=== PATIENT | male | born 1945 | race Caucasian/White ===

== ENCOUNTER 2021-05-27 09:21 | Emergency (ER) | payer MEDICARE, SELFPAY ==
--- NOTE | 2021-05-27 09:35 | XR_ITS ---
FINAL REPORT CLINICAL HISTORY: covid +, cough, fever, soa, pacemaker, headache FINDINGS: 2 views of the chest were obtained . The heart is enlarged. 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 Patient is status post median sternotomy. The mediastinum is within normal limits. There is mild pulmonary vascular congestion. The lungs are clear. There is no pneumothorax. Osseous structures demonstrate degenerative changes of the shoulders. IMPRESSION: Mild pulmonary vascular congestion without acute cardiopulmonary process. Reviewed, Interpreted and Dictated by Dylan Gonzalez III, MD Transcribed by Merlyn Cherry Authenticated by Dylan Gonzalez III, MD on 05/27/2021 10:42:47 AM [facility]
--- NOTE | 2021-05-27 10:36 | HMH.EDUTC ---
[facility] Disposition Clinical Impression: Viral syndrome, Exposure to COVID-19 virus Disposition: Home, Self-Care Condition on Discharge: Good Instructions: DI for Viral Syndrome, DI for COVID-19 (Suspected or Confirmed ), Preventing the Spread of Coronavirus Discharge Instructions Additional Instructions: Take tylenol for pain or fever. Take the medications as directed. Follow up with your regular doctor. GO TO THE ER FOR ANY WORSENING SYMPTOMS Quarantine until you know the results of your covid-19 test. If it is positive, the health department should call you and give you further instructions about your length of Quarantine and other things. Notify your school or workplace of your results and follow their instructions regarding return to work/school. Prescriptions: Guaifenesin/Dextromethorphan [Guaifenesin-Dm 100-10 mg/5 ml] 5 ml PO Q6HP PRN #240 ml PRN Reason: Cough Transmission Status: Pending to [facility] # Azithromycin [Z-Ganesh 250mg Tab*] 250 mg PO UD DOSE PK #6 tab Transmission Status: Pending to [facility] # Referrals: Provider,Referral, [Primary Care Provider] - Time of Disposition: 11:29 Medical Decision Making - Medical Records Medical records reviewed: No: I reviewed the patient's medical records. - Robert Inquiry Pt receiving controlled substance: No Vital Signs: 05/27/21 10:37 Temperature 98.9 F Temperature Source Oral Pulse Rate [Left] 70 Respiratory Rate 18 Blood Pressure [Right Arm] 141/81 H Blood Pressure Mean [Right Arm] 101 02 Sat by Pulse Oximetry 97 - Lab Data Lab Results 05/27/21 10:44: Influenza Type A Ag Negative, Influenza Type B Ag Negative 05/27/21 10:44: Strep Scn Rapid Clinic Negative Orders (Tests/Meds): ORDERS Category Date Time Status Covid-19 Nasal PCR ([facility]) Routine Lab 05/27/21 10:44 Ordered Strep Screen Confirmation Stat Micro 05/27/21 10:44 Received [facility] HPI - General Stated complaint: covid positive, symptoms Time Seen by Provider: 05/27/21 10:37 - History of Present Illness Provider Complaint: He states that he has felt bad for the past 2 days. He has felt weak, fatigued, had chest and sinus congestion and felt bad all over. His daughter had covid-19 over the past 2 weeks. He states that he feels slightly more short of breath than his usual. - Related Data Previous Rx's Medication Instructions Recorded Azithromycin [Z-Ganesh 250mg Tab*] 250 mg PO UD DOSE PK #6 tab 05/27/21 Guaifenesin/Dextromethorphan 5 ml PO Q6HP PRN #240 ml 05/27/21 [Guaifenesin-Dm 100-10 mg/5 ml] Allergies Allergy/AdvReac Type Severity Reaction Status Date / Time No Known Allergies Allergy Verified 05/27/21 10:41 [facility] History - Hepatitis A Screen Attestation statement:: This patient has been screened for Hepatitis A risk factors. I have reviewed the patient's past medical history: Yes ROS Obtained: Yes All systems reviewed & no additional complaints - Constitutional Constitutional: Reports as per HPI - Eyes Eyes: Denies eye discharge - ENT Ears, Nose, Mouth, and Throat: Reports as per HPI - Cardiovascular Cardiovascular: Denies chest pain - Respiratory Respiratory: Reports chest congestion, Reports cough, Denies dyspnea, Denies stridor, Denies wheezing - Gastrointestinal Gastrointestingal: Denies: abdominal pain, diarrhea, nausea, vomiting - Musculoskeletal Musculoskeletal: Denies joint pain, Denies back pain, Denies neck pain - Integumentary/Breasts Skin/Breast: Denies rash Physical Exam - General General appearance: alert, in no apparent distress - Head Head exam: atraumatic, normocephalic, normal inspection - Eye Eye exam: Present: normal appearance, PERRL, EOMI - ENT ENT exam: Present: normal exam, normal oropharynx, mucous membranes moist, TM's normal bilaterally, normal external ear exam - Neck Neck exam: Present: normal inspection, full ROM, trachea m
[2021-05-27 10:37] VITALS: BP 141/81; PULSE 70; RESP 18; TEMP 37.2; O2SAT 97; BMI 30.7
[2021-05-27 10:54] LABS: UTC Influenza A Antigen Negative (Negative); UTC Strep Screen (Rapid) Negative (Negative)
[2021-05-27 10:55] LABS: UTC Influenza B Antigen Negative (Negative)
[2021-05-27 11:27] VITALS: BP 141/81; PULSE 70; RESP 18; TEMP 37.2
== END 2021-05-27 11:37 | disposition home or self-care (01) ==
PROVIDERS: Emergency Provider Nurse Practitioner Family
DX: U07.1 COVID-19 (principal); R09.81 Nasal congestion
CPT/HCPCS: G0463; 71046; 87804; 87880; 99202; C9803; U0003; U0005

== ENCOUNTER 2025-05-04 15:53 | Emergency (ER) | payer MEDICARE, SELFPAY ==
--- OUTSIDE RECORDS SUMMARY | 2023-11-19 05:00 | XMS_ITS ---
Author Organization [facility] Address [address], [place] [id number] Care Team Providers Care Garnishment Specialist Name Role Phone Tony Chacon Unavailable [phone] Allergies No Known Allergies REASON FOR VISIT CCA visit Medications Medication SIG (Take, Route, Frequency, Duration) Notes Start Date End Date Status Eliquis 5 MG Tablet Orally Active Carvedilol 25 MG Tablet Orally BID Active oxyBUTYnin Chloride ER 5 MG Tablet Extended Release 24 Hour TAKE 1 TABLET BY MOUTH ONCE DAILY; Duration: 90 Active Naproxen 500 MG Tablet 1 tablet with lorenza d or milk as needed Orally every 12 hrs; Duration: 15 days 10/16/2018 Active Diclofenac Sodium 1 % Gel as directed Tr ansdermal QID; Duration: 30 day(s) Active Aspirin 81 MG Tablet 1 tablet Orally Onc e a day; Duration: 30 day(s) 12/30/2012 Active Lisinopril 5 MG Tablet take 1/2 tablet b y mouth once daily; Duration: 60 Active Atorvastatin Calcium 40 mg Tablet take 1 tablet by mouth at bedtime Orally Once a day; Duration: 30 Active Social History Social History Additional Details Category Social Info Options Details Miscellaneous: Marital status single Occupation: Retired Problems Problem Type SNOMED Code ICD Code Onset Dates Problem Status W/U Status Risk Notes Problem Dysthymia (90128902) 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) Active confirmed Problem Body mass index 30+ - obesity (234400829) Body mass index [BMI] 30.0-30.9, adult (Z68.30) Active confirmed Vital Signs Temperature 97.9 degrees Fahrenheit 11/19/19 24 Blood pressure systolic 113 mm Hg 11/19/19 24 Blood pressure diastolic 72 mm Hg 024 Heart Rate 83 /min 11/19/2023 Height 5ft 10in in 11/19/2023 Weight 211.2 lbs 11/19/2023 BMI 30.3 kg/m2 11/19/2023 Encounters Encounter Location Date Provider Diagnosis [facility] [address], [place] [id number] 11/19/2023 Tony Chacon Dysthymic disorder F34.1 and Body mass index [BMI] 30.0-30.9, adult Z68.30 Assessments Encounter Date Diagnosis (ICD Code) Assessment Notes Treatment Notes Treatment Clinical Notes Section Notes 11/19/2023 Dysthymic disorder (ICD-10 - F34.1) pt refuses medication. 11/19/2023 Body mass index [BMI] 30.0-30.9, adult (ICD-10 - Z68.30) Plan Of Treatment Treatment Notes Assessment Notes Dysthymic disorder pt refuses medicatio n. Next Appt Details Follow Up: prn, Reason: History and Physical Notes * HPI (History of Present Illness) Category Sub-Category Detail Notes Category Not es Depression Screening PHQ-9 Little inte rest or pleasure in doing things: Not at all Feeling down, depressed, or hopeless: No t at all Trouble falling or staying asleep, or sl eeping too much: Not at all Feeling tired or having little energy: S everal days Poor appetite or overeating : Not at all Feeling bad about yourself-o r that you are a failure or have let yourself or your family down : Not at all Trouble concentrating on thi ngs, such as reading the newspaper or watching television : Not at all Moving or speaking so slowly that other people could have noticed. Or the opposite- being so fidgety or restless that you have been moving around a lot more than usual: Not at all Thoughts that you would be b carson off , or of hurting yourself in some way?: Not at all Total Score:: 1 Interpretation: Minimal Depression Examination Category Sub-Category Detail Notes Category Not es General Examination HEENT: HEAD: normoc ephalic atraumatic EARS: tympanic membranes normal EYES: Pupils Equal, Round, Reactive to Light (PERRL) NOSE: clear rhinorrhea no sinus tenderness THROAT: no exudate on tonsils no erythema NECK/THYROID: supple, no tendernes s CARDIOVASCULAR: regular rate and rhy thm, normal S1S2, no murmurs RESPIRATORY: clear to auscultatio n bilaterally, no wheezes, rales or crackles GASTROINTESTINAL: soft, non-tender/non -distended, bowel sounds present, no mass or organomegaly EXTREMITIES: no clubbing, no cyan osis, no edema GENERAL APPEARANCE: well nourished, well developed, color good, no acute distress SKIN: warm, dry, no signif icant lesions NEUROLOGIC EXAM: alert and oriented x 3, no weakness, no motor sensory deficit ORAL CAVITY: no significant abnor mality , moist mucous membranes Progress Notes * Jason SHIPMANDOB:[birth year] (80 yo M)Acc No.[id number]:11/19/2023 Progress Notes Patient: Jason Sullivan Provider: Kelechi Chacon MD :1945 A ge:78 Y S ex:Male Date:11/19/2023 Address:[address] [place], [place] [id number] Subjective: * Chief Complaints: * C CA visit * HPI: D epression Screening: Patient here today for check up. States he is doing pretty good. States he has done well since he had the pacemaker put in. He states he has had both hips and right shoulder replaced. PHQ-9 L ittle interest or pleasure in doing things N ot at all, F eeling down, depressed, or hopeless N ot at all, T rouble falling or staying asleep, or sleeping too much N ot at all, F eeling tired or having little energy S everal days, P oor appetite or overeating N ot at all, F eeling bad about yourself-or that you are a failure or have let yourself or your family down N ot at all, T rouble concentrating on things, such as reading the newspaper or watching television N ot at all, M oving or speaking so slowly that other people could have noticed. Or the opposite- being so fidgety or restless that you have been moving around a lot more than usual N ot at all, T houghts that you would be better off , or of hurting yourself in some way? N ot at all, T otal Score: 1 ,?Interpretation M inimal Depression. * ROS: G eneral/Constitutional: Chills n o. F ever n o. W eight loss n o.? O phthalmologic: Diminished vision n o. D ouble vision n o. V ision loss n o. E ndocrine: Excessive sweating n o. E xcessive thirst n o. E xcessive urination n o. C ardiovascular: Chest pain n o. C laudication n o. L eg edema?no. P alpitations n o. S hortness of breath n o. G astrointestinal: Abdominal pain n o. D iarrhea n o. N ausea n o. V omiting n o. M usculoskeletal: Joint pain n o. J oint stiffness n o. J oint swelling n o. M orning stiffness n o. * Medical History: No Medical History Documented Medical History Verified * Surgical History: cardiac surgery-bypass 2013 pacemaker Surgical History verified. * Hospitalization/Major Diagno stic Procedure: Denies Past Hospitalization. * Family History: F ather: . M other: . 2 brother(s) . 2 daughter(s) . . F amily History Verified.. * Social History: M gordoous: M arital status: single. Occupation: Retired. Social History Verified. * Medications: T akingAspirin 81 MG Tablet 1 tablet Orally Once a day Lisinopril 5 MG Tablet take 1/2 tablet by mouth once daily Atorvastatin Calcium 40 mg Tablet take 1 tablet by mouth at bedtime Orally Once a day Eliquis 5 MG Tablet Orally Carvedilol 25 MG Tablet Orally BID Diclofenac Sodium 1 % Gel as directed Transdermal QID oxyBUTYnin Chloride ER 5 MG Tablet Extended Release 24 Hour TAKE 1 TABLET BY MOUTH ONCE DAILY Naproxen 500 MG Tablet 1 tablet with food or milk as needed Orally every 12 hrs Taking Aspirin 81 MG Tablet 1 tablet Orally Once a day Taking Lisinopril 5 MG Tablet take 1/2 tablet by mouth once daily Taking Atorvastatin Calcium 40 mg Tablet take 1 tablet by mouth at bedtime Orally Once a day Taking Eliquis 5 MG Tablet Orally Taking Carvedilol 25 MG Tablet Orally BID Taking Diclofenac Sodium 1 % Gel as directed Transdermal QID Taking oxyBUTYnin Chloride ER 5 MG Tablet Extended Release 24 Hour TAKE 1 TABLET BY MOUTH ONCE DAILY Taking Naproxen 500 MG Tablet 1 tablet with food or milk as needed Orally every 12 hrs * Allergies: N .K.DanyelleAllergies Verified. Objective: * Vitals: H t: 5ft 10in, Wt: 211.2 lbs, BMI: 30.3 Index, BP:113/72mm Hg, Temp:97.9F, HR:83/min. * Examination: G eneral Examination: GENERAL APPEARANCE: w ell nourished, well developed, color good, no acute distress. HEENT: H EAD: normocephalic atraumatic EARS: tympanic membranes normal EYES: Pupils Equal, Round, Reactive to Light (PERRL) NOSE: clear rhinorrhea no sinus tenderness THROAT: no exudate on tonsils no erythema. ORAL CAVITY: n o significant abnormality , moist mucous membranes. NECK/THYROID: s upple, no tenderness. CARDIOVASCULAR: r egular rate and rhythm, normal S1S2, no murmurs. RESPIRATORY: c lear to auscultation bilaterally, no wheezes, rales or crackles. GASTROINTESTINAL: s oft, non-tender/non-distended, bowel sounds present, no mass or organomegaly. NEUROLOGIC EXAM: a lert and oriented x 3, no weakness, no motor sensory deficit. SKIN: w arm, dry, no significant lesions . EXTREMITIES: n o clubbing, no cyanosis, no edema. ? Assessment: * Assessment: 1. D ysthymic disorder - F34.1 (Primary) 2 . B shelbi mass index [BMI] 30.0-30.9, adult - Z68.30 Plan: * Treatment: * Follow Up: p rn * Electronic signature of Koko Chacon MD on 05/04/2025 at 04:18 PM EST Sign off status: Pending * Provider: Kelechi Chacon MD Date: 0 11/19/2023 Generated for Silke taylor/Gonzalo/Angelitting on: 07/05/2024 04:18 PM EST
--- OUTSIDE RECORDS SUMMARY | 2025-04-14 09:00 | XMS_ITS | Encounter Summary ---
[facility] Address [address] [place] [address] Care Team Providers Care Fashion Journalist Name Role Phone Tony Chacon MD Primary Care Provider Encounter Details Date Type Department Care Team (Late st Contact Info) Description 04/14/2025 9:00 AM EST Ancillary Procedure [facility] [address] [id number] Social History Tobacco Use Types Packs/Day Years Used Date Smoking Tobacco: Never Smokeless Tobacco: Never Alcohol Use Standard Drinks/Week Comments No 0 (1 standard drink = 0.6 oz pur e alcohol) AUDIT-C Answer Date Recorded Q1: How often do you have a drink containing alcohol? Never 08/08/2022 Q2: How many drinks containi ng alcohol do you have on a typical day when you are drinking? Patient does not drink Q3: How often do you have si x or more drinks on one occasion? Never 08/08/2022 Abuse Screen Answer Date Recorded Feels Unsafe at Home or Work/School no 05/25/2023 Feels Threatened by Someone no 05/14 Does Anyone Try to Keep You From Having Contact with Others or Doing Things Outside Your Home? no 05/25/2023 Physical Signs of Abuse Present no 05/25/2023 Housing Stability Answer Date Recorded Current Living Arrangements home 05/14 Potentially Unsafe Housing Conditions Not on nasrin e 05/25/2023 Disabilities Answer Date Recorded Difficulty Concentrating, Remembering or Making Decisions no 05/25/2023 Difficulty Managing Errands Independently no 05/25/2023 Education Answer Date Recorded Help with school or training? Not on file Preferred Language Mauritanian 08/08/2022 Sex and Gender Information Value Date Recorded Sex Assigned at Not on file Legal Sex Male 11:56 AM EDT Gender Identity Not on file Sexual Orientation Not on file documented as of this encounter Plan of Treatment Upcoming Encounters Date Type Department Care Team (Late st Contact Info) Description 04/20/2026 9:30 AM EST Office Visit [facility] [address] [facility] [address] [place] [address] Marek Cedeno MD [address] [facility] [address] [place], [place] [id number] documented as of this encounter Procedures Procedure Name Priority Date/Time Associated Diagnosis Comments XR SHOULDER 2+ VW RIGHT Routine 04/14/2025 9:00 AM EST Status post reverse total replacement of right shoulder documented in this encounter Results * XR Shoulder 2+ View Right (04/14/2025 9:00 AM EST) Anatomical Region Laterality Modality Upper Extremities, Shoulder Right Radi ographic Imaging Narrative 04/14/2025 9:13 AM EST Imaging: shoulder x-rays 3 views - AP, axillary, and scapular-Y x-ray views Side: RIGHT SHOULDER Indication for shoulder x-ray 3 views: shoulder pain Comparison: postoperative imaging Findings: Right shoulder 3 views after reverse shoulder arthroplasty show stable findings relative to prior serial postoperative imaging. 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 Stable radiographic findings noted. No acute bony changes noted. I personally reviewed the above x-rays. us Marek Cedeno MD IMG DIAGNOSTIC IMAGING OR DERABLES Final Result documented in this encounter Visit Diagnoses Not on filedocumented in this encounter Care Teams Fashion Journalist Relationship Specialty Start Date End Date Tony Chacon MD [facility] [address] [place] [address] (work) PCP - General Family Medicine 03/06/19 documented as of this encounter
--- OUTSIDE RECORDS SUMMARY | 2025-04-14 09:30 | XMS_ITS | Encounter Summary ---
[facility] Organization [facility] Address [address] [place] [address] Care Team Providers Care Golf Manager Name Role Phone Tony Chacon MD Primary Care Provider Reason for Visit * Reason Comments Follow-up 1 year follow up -- 3 year status post right total shoulder reverse arthroplasty (04/12/22) Encounter Details Date Type Department Care Team (Late st Contact Info) Description 04/14/2025 9:30 AM EST Office Visit [facility] [address] [facility] [address] [place] [address] [place] [address] [place] [address] [address] [place] [id number] 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 Not on file Preferred Language Malawian 08/08/2022 Sex and Gender Information Value Date Recorded Sex Assigned at Not on file Legal Sex Male 11:56 AM EDT Gender Identity Not on file Sexual Orientation Not on file documented as of this encounter Last Filed Vital Signs Vital Sign Reading Time Taken Comments Blood Pressure 122/82 04/14/2025 8:47 AM EST Pulse - - Temperature - - Respiratory Rate - - Oxygen Saturation - - Inhaled Oxygen Concentration - - Weight 93.9 kg (207 lb 1.6 oz) 04/14/2025 8:47 A M EST Height 172.7 cm (5' 8 ) 04/14/2025 8:47 AM EST Body Mass Index 31.49 04/14/2025 8:47 AM EST documented in this encounter Progress Notes * Marek Cedeno MD - 04/14/2025 9:30 AM EST Images from the original note were not included. [facility] Orthopaedic Surgery Office Follow Up - Marek Cedeno MD [facility] Office Follow Up Visit Patient Name: Jason Perez Chief Complaint: Chief Complaint Patient presents with Follow-up 1 year follow up -- 3 year status post right total shoulder reverse arthroplasty (04/12/22) Referring Physician: No ref. provider found - I appreciate the referral History of Present Illness: Jason Perez returns to clinic today for F/U: postoperative follow-up of rightBody Part: shoulderReason: reverse arthroplasty . The issue has been ongoing for 3 year(s). The patient rates pain at 0/10 on the pain scale. Previous/current treatments: NSAIDS and physical therapy. Overall, the patientis doing better. I have reviewed the patient's history of present illness as noted/entered above. I have reviewed the patient's past medical history, surgical history, social history, family history, medications, and allergies as noted in the electronic medical record and as noted/entered. I havereviewed the patient's review of systems as noted/enter and updated as noted in the patient's HPI. 04/14/2025 Right SHOULDER Research protocol right stemless reverse shoulder arthroplasty completed 04/12/2022 3 years postop continues to do well VAS equals 0 out of 10. Reports doing better VAS equals 0 out of 10 ASES score 3 years equals 95 Remarkable individual and remarkable family ASES Shoulder Score Which shoulder is being treated today?: Right (04/14/25899) Usual Work?: (not recorded) Usual Sport/Leisure Activity?: (not recorded) Do you have shoulder pain at night?: No (04/14/25899) Do you take pain killers such as paracetamol (acetaminophen), diclofenac, or ibuprofen?: Yes (04/14/25899) Do you take strong pain killers such as codeine, tramadol, or morphine?: No (04/14/25899) How many pills do you take on an average day?: 4 (04/14/25899) Intensity of pain? (scale of 0-10): 1 (04/14/25899) Is it difficult for you to put on a coat?: Not difficult (04/14/25899) Is it difficult for you to sleep on the affected side?: Not difficult (04/14/25899) Is it difficult for you to wash your back/do up bra?: Not difficult (04/14/25899) Is it difficult for you to manage toileting?: Not difficult (04/14/25899) Is it difficult for you to comb your hair?: Not difficult (04/14/25899) Is it difficult for you to reach a high shelf?: Not difficult (04/14/25899) Is it difficult for you to lift 10lbs (4.5 kg) above your shoulder?: Not difficult (04/14/25899) Is it difficult for you to throw a ball overhand?: Not difficult (04/14/25899) Is it difficult for you to do your usual work?: Not difficult (04/14/25899) Is it difficult for you to do your usual sport/leisure activity?: Not difficult (04/14/25899) Pain Visual Analog Scale (VAS): 45 (04/14/25899) ADL Score: 50 (04/14/25899) ASES Total Score: 95 (04/14/25899) Prior history: 10/10/2022: Right reverse shoulder arthroplasty date of surgery 04/12/2022 Right shoulder 6 months out from stemless reverse shoulder arthroplasty. He is doing incredibly well 0 out of 10 pain. Incredible active and passive range of motion. He has noted over the last several months perhaps some evidence of carpal tunnel syndrome. That is what his primary care team thinks as well. We will get an EMG/NCV of the right upper extremity to evaluate for possible carpal tunnel syndrome. The shoulder is doing incredibly well. Right total hip arthroplasty with Dr. Olson 08/07/2022 went home the next day. He is done well with that no events with regards to the hip. Supportive daughter present and great grandson. Prior: Bilateral severe glenohumeral joint arthritis Right worse than left Pacemaker, prior open heart surgery, history of atrial fibrillation, [facility] Cardiology team is at [facility] He is set for possible pacemaker exchange in March. Supportive daughter Ritu is present. They are targeting surgery for the right shoulder in February she and her do have some travel arranged around that time and do want to be available to support him. They originally from [facility]. His supportive daughter Ritu is present and he helps them with her horses. 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 02/16/2022: Right shoulder severe B3 glenoid, supportive daughter present, consented for research study. Shoulder still incredibly painful. They note they have achieved cardiac clearance. Eliquis Date of surgery 04/12/2022 right reverse shoulder arthroplasty 04/03/2023 1 year post surgery Left total hip replacement by Dr. Olson 08/07/2022 Right carpal tunnel and cubital tunnel release by Dr. Homa Moura 02/28/2023 The surgeries are unrelated to the shoulder. He notes the shoulder is doing fantastic SANE score equals 100 VAS equals 0 out of 10 Very satisfied with the shoulder Current health is rated at 100 No difficulties noted with the shoulder No pain reported with the shoulder Overall he is doing incredibly well 04/08/2024: Right reverse shoulder arthroplasty stemless 04/03/2023 2 years postsurgery SANE score equals 100 VAS equals 0 out of 10 ASES score is 100 General Health score is 100 X-rays into your outcomes completed at visit He is doing fantastic and x-rays are stable. Report of daughter present. Subjective Subjective Review of Systems Constitutional: Negative. Negative for chills, fatigue and fever. HENT: Negative. Negative for congestion and dental problem. Eyes: Negative. Negative for blurred vision. Respiratory: Negative. Negative for shortness of breath. Cardiovascular: Negative. Negative for leg swelling. Gastrointestinal: Negative. Negative for abdominal pain. Endocrine: Negative. Negative for polyuria. Genitourinary: Negative. Negative for difficulty urinating. Musculoskeletal: Positive for arthralgias. Skin: Negative. Allergic/Immunologic: Negative. Neurological: Negative. Hematological: Negative. Negative for adenopathy. Psychiatric/Behavioral: Negative. Negative for behavioral problems. Past Medical History: Past Medical History: Diagnosis Date Arthritis Atrial fibrillation Cancer skin cancer Cardiac pacemaker [employer] Coronary artery disease Elevated cholesterol Enlarged prostate Heart disease History of bilateral cataract extraction History of COVID-2020 no hospital no steroids History of MA (myocardial infarction) Hypertension Wears glasses reading Wears partial dentures UPPER PARTIAL PLATE Past Surgical History: Past Surgical History: Procedure Laterality Date CARDIAC CATHETERIZATION CARPAL TUNNEL RELEASE Left 05/25/2023 Procedure: CARPAL TUNNEL RELEASE - LEFT; Surgeon: Homa Moura MD; Location: [facility] OR; Service: Orthopedics; Laterality: Left; CARPAL TUNNEL RELEASE WITH CUBITAL TUNNEL RELEASE Right 02/28/2023 Procedure: OPEN CARPAL TUNNEL RELEASE WITH ULNAR NERVE RELEASE AT THE ELBOW - RIGHT; Surgeon: Homa Moura MD; Location: [facility] OR; Service: Orthopedics; Laterality: Right; CATARACT EXTRACTION W/ INTRAOCULAR LENS IMPLANT, BILATERAL CORONARY ARTERY BYPASS GRAFT CABG x 7 st Tang 2012 PACEMAKER IMPLANTATION [employer] PACEMAKER REPLACEMENT 05/31/2022 SKIN BIOPSY TOTAL HIP ARTHROPLASTY Left 08/07/2022 Procedure: TOTAL HIP ARTHROPLASTY - LEFT; Surgeon: Ace Olson MD; Location: [facility] OR; Service: Orthopedics; Laterality: Left; TOTAL SHOULDER ARTHROPLASTY W/ DISTAL CLAVICLE EXCISION Right 04/12/2022 Procedure: TOTAL SHOULDER REVERSE ARTHROPLASTY RIGHT; Surgeon: Marek Cedeno MD; Location: [facility]; Service: Orthopedics; Laterality: Right; Incision TIme: 1033 1st stitch/last implant: 1147 Family History: Family History Problem Relation Name Age of Onset Cancer Father Social History: Social History Socioeconomic History Marital status: Tobacco Use Smoking status: Never Smokeless tobacco: Never Vaping Use Vaping status: Never Used Substance and Sexual Activity Alcohol use: No Drug use: No Sexual activity: Defer Medications: Current Outpatient Medications: acetaminophen (TYLENOL) 500 MG tablet, Take 1 tablet by mouth Every 8 (Eight) Hours., Disp: 90 tablet, Rfl: 1 amiodarone (PACERONE) 200 MG tablet, Take 1 tablet by mouth Daily., Disp: , Rfl: atorvastatin (LIPITOR) 40 MG tablet, Take 1 tablet by mouth Daily., Disp: , Rfl: 0 Eliquis 5 MG tablet tablet, Take 1 tablet by mouth Every 12 (Twelve) Hours. Take 2.5 mg every 12 hours till evening. Resume 5 mg every 12 hours Sunday am ( 08/11), Disp: 60 tablet, Rfl: 0 isosorbide mononitrate (IMDUR) 30 MG 24 hr tablet, Take 1 tablet by mouth Daily., Disp: 30 tablet, Rfl: 5 Jardiance 10 MG tablet tablet, Take 1 tablet by mouth Daily., Disp: , Rfl: lisinopril (PRINIVIL,ZESTRIL) 5 MG tablet, , Disp: , Rfl: metoprolol succinate XL (TOPROL-XL) 50 MG 24 hr tablet, Take 1 tablet by mouth Daily., Disp: , Rfl: naproxen (NAPROSYN) 500 MG tablet, TAKE 1 TABLET BY MOUTH EVERY 12 HOURS WITH FOOD OR MILK FOR 15 DAYS NEEDED, Disp: , Rfl: nitroglycerin (NITROSTAT) 0.4 MG SL tablet, Place under the tongue Every 5 (Five) Minutes As Neededfor Chest Pain., Disp: , Rfl: Allergies: No Known Allergies The following portions of the patient's history were reviewed and updated as appropriate: allergies, current medications, past family history, past medical history, past social history, past surgicalhistory and problem list. Objective Objective Vital Signs: Vitals: 04/14/25 0847 BP: 122/82 Weight: 93.9 kg (207 lb 1.6 oz) Height: 172.7 cm (68 ) Ortho Exam: Right shoulder excellent arc of motion persists Forward flexion 140 degrees abduction 160 degrees forward elevation arm with external rotation 45/45 ER at the side Extension 50-50 Excellent deltoid strength Results Review: Imaging Results (Last 24 Hours) Procedure Component Value Units Date/Time XR Shoulder 2+ View Right [[id number]] Resulted: 04/14/25912 Updated: 04/14/25912 Narrative: Imaging: shoulder x-rays 3 views - AP, [...] Stable radiographic findings noted. No acute bony changesnoted. I personally reviewed the above x-rays. Assessment / Plan Assessment/Plan: Problem List Items Addressed This Visit Musculoskeletal and Injuries Status post reverse total replacement of right shoulder - Primary Relevant Medications acetaminophen (TYLENOL) 500 MG tablet naproxen (NAPROSYN) 500 MG tablet Other Relevant Orders XR Shoulder 2+ View Right (Completed) Right shoulder doing incredibly well 3 years postop He will continue to progress as able Follow Up: 12 months for 4 year follow-up appointment with RIGHT shoulder 3 views and ASES scoring under Flowsheets upon arrival/during rooming Marek Cedeno MD, FAAOS Orthopedic Surgeon, Shoulder Surgery [facility] Orthopedics and Sports Medicine [address] [place] [address], [address] [place] [address] & New Location: [facility] Location [address] [facility], [address] [place] [address] 04/14/25 09:19 EST documented in this encounter Plan of Treatment Upcoming Encounters Date Type Department Care Team (Late st Contact Info) Description 04/20/2026 9:30 AM EST Office Visit [facility]ICINE [address] [place] [address] [place] [phone] Marek Cedeno MD [address] [facility] [address] [place] [address] documented as of this encounter Procedures Procedure [...] noted. I personally reviewed the above x-rays. Marek Cedeno MD IMG DIAGNOSTIC IMAGING OR DERABLES Final Result documented in this encounter Visit Diagnoses Diagnosis Status post reverse total replacement of right shoulder- Primary documented in this encounter Care Teams Golf Manager Relationship Specialty Start Date End Date Tony Chacon MD [address] [place] [phone] PCP - General Family Medicine 03/06/19 documented as of this encounter
--- OUTSIDE RECORDS SUMMARY | 2025-04-24 08:00 | XMS_ITS | Encounter Summary ---
Author Organization Healthcare Address [address] [place] [address] Care Team Providers Care Delimer Name Role Phone Tony Chacon MD Primary Care Provider [phone] Reason for Referral * Imaging (Routine) - Closed Specialty Diagnoses / Procedures Referred By Alina sood Referred To Contact Cardiology Diagnoses Acute heart failure, unspecified heart failure type Procedures Echo, Adult Transthoracic Complete Jeffrey Pierce MD [address] [place] [address] Phone: tel: fax: Referral ID Status Reason Start Date Expiration Date V isits Requested Visits Authorized [id number] Closed Perform Procedure 01/23/2025 07/25/2026 1 1 Reason for Visit * Imaging (Routine) - Closed Specialty Diagnoses / Procedures Referred By Alina sood Referred To Contact Cardiology Diagnoses Acute heart failure, unspecified heart failure type Procedures Echo, Adult Transthoracic Complete Jeffrey Pierce MD [address] [place] [address] Phone: tel: fax: Referral ID Status Reason Start Date Expiration Date V isits Requested Visits Authorized [id number] Closed Perform Procedure 01/23/2025 07/25/2026 1 1 Encounter Details Date Type Department Care Team (Latest Contact Info) Description 04/24/2025 8:00 AM EST - 04/24/2025 11:59 PM EST Hospital Encounter Cardiac Imaging [address] [place] [address] Acute heart failure, unspecified heart failure type Discharge Disposition: Home or Self Care Social History Tobacco Use Types Packs/Day Years Used Date Smoking Tobacco: Never Passive Smoke Exposure: Past Smokeless Tobacco: Never Alcohol Use Standard Drinks/Week Comments No 0 (1 standard drink = 0.6 oz pure alcohol) Alcoholic Drinks/day: Denies alcohol consumption PHQ-2 Answer Date Recorded Patient Health Questionnaire-2 Score 0 04/24/2025 PHQ-9 Answer Date Recorded Patient Health Questionnaire-9 Score 0 04/24/2025 Sex and Gender Information Value Date Recorded Sex Assigned at Not on file Legal Sex Male 7:32 PM EDT Gender Identity Not on file Sexual Orientation Not on file documented as of this encounter Last Filed Vital Signs Vital Sign Reading Time Taken Comments Blood Pressure 135/85 04/24/2025 9:03 AM EST Pulse 70 04/24/2025 9:03 AM EST Temperature - - Respiratory Rate - - Oxygen Saturation - - Inhaled Oxygen Concentration - - Weight - - Height - - Body Mass Index - - documented in this encounter Functional Status * Over the past 2 weeks, how often have you been bothered by any of the following problems? Question Answer Date of Assessment Author Little interest or pleasure in doing things Not at all 04/24/2025 8:48 AM Michael Antonio Feeling down, depressed, or hopeless Not at all 04/24/2025 8:48 AM Michael Antonio Patient Health Questionnaire -2 Score 0 04/24/2025 8:48 AM Michael Antonio * Question Answer Date of Assessment Author Trouble falling or staying asleep, or sleeping too much Not at all 04/24/2025 8:48 AM Bia Echeverria ams Feeling tired or having ann-marie le energy Not at all 04/24/2025 8:48 AM Michael Antonio Poor appetite or overeating Not at all 04/24/2025 8: 48 AM Bia Antonio Feeling bad about yourself - or that you are a failure or have let yourself or your family down Not at all 04/24/2025 8:48 AM Michael Antonio Trouble concentrating on things, such as reading the newspaper or watching television Not at all 04/24/2025 8:48 AM Michael Antonio Moving or speaking so slowly that other people could have noticed. Or the opposite - being so fidgety or restless that you have been moving around a lot more than usual Not at all 04/24/2025 8:48 AM Bia Echeverria ams Thoughts that you would be better off or hurting yourself in some way Not at all 04/24/2025 8:48 AM Valentina Antonio ndbeverley Patient Health Questionnaire -9 Score 0 04/24/2025 8:48 AM Michael Antonio * How difficult have these problems made it for you to do your work, take care of things at home, or get along with other people? Answer Date of Assessment Author Not difficult at all 04/24/2025 8:48 AM Bia Mckenzie documented as of this encounter Medications at Time of Discharge amiodarone (Pacerone) 200 MG tablet Take 1 tablet by mouth daily. 90 tablet 3 02/27/2025 atorvastatin (Lipitor) 80 MG tablet Take 1 tablet by mouth daily. 01/19/2025 bumetanide (Bumex) 1 MG tablet Take 1 tablet by mouth as needed. 01/19/2025 Eliquis 5 MG tablet Take 1 tablet by mouth 2 times a day. 01/16/2025 Jardiance 10 MG Take 1 tablet by mouth daily. 12/29/2024 lisinopril 10 MG tablet Take 1 tablet by mouth daily. 90 tablet 3 02/27/2025 lisinopril 5 MG tablet Take 1 tablet by mouth daily. metoprolol succinate XL (Toprol-XL) 25 MG 24 hr tablet Take 1 tablet by mouth daily. 90 tablet 3 02/27/2025 nitroglycerin (Nitrostat) 0.[address] 1 tablet under the tongue As Directed. EVERY 5 MINUTES NEEDED FOR CHEST PAIN PUT 1 PILL UNDER TONGUE. NO MORE THAN 3 DOSES IN 15MIN.CALL 911 IF PAIN UNRELIEVED 5MIN AFTER 1ST DOSE. documented as of this encounter Plan of Treatment Not on file documented as of this encounter Procedures Procedure Name Priority Date/Time Associated Diagnosis Comments ECHO, ADULT TRANSTHORACIC COMPLETE Routine 04/24/2025 8:49 AM EST Acute heart failure, unspecified heart failure type documented in this encounter Results * ECHO, ADULT TRANSTHORACIC COMPLETE (04/24/2025 8:49 AM EST) Height 177.8 DOC ISCV Weight 93.4 DOC ISCV BSA 2.11 m2 DOC ISCV Ao Root Diam 43 mm DOC ISCV Asc Ao Diam 43 mm DOC ISCV LA dimension 59 mm DOC ISCV IVSd 12 mm DOC ISCV LVIDd 55 mm DOC ISCV LVPWd 10 mm DOC ISCV LV MASS(C)D 241 g DOC ISCV [facility] CV ECHO LV MASS INDEX 114 g/m2 DOC ISCV LV RWT 0.40 mm DOC ISCV PA acc time 60 msec DOC ISCV mean PAP 52 mmHg DOC ISCV PA NE(ACCEL) 52.1 mmHg DOC ISCV PA acc slope 752.9 cm/s2 DOC ISCV LAV(MOD-4ch) 134 mL DOC ISCV LAV(MOD-bp) Indexed 57 mL/m2 DOC ISCV LAV(MOD-2ch) 108 mL DOC ISCV RV base 54 mm DOC ISCV RV Mid 50 mm DOC ISCV RA MOD 4Ch 117 mL DOC ISCV RANDI 55 mL/m2 DOC ISCV LV EDV(MOD-4ch) 151 mL DOC ISCV LV ESV(MOD4ch) 84 mL DOC ISCV EF(MOD-sp4) 44 % DOC ISCV LV EDV(MOD-2ch) 142 mL DOC ISCV EDV(MOD-bp) 147 mL DOC ISCV LV ESV(MOD2ch) 76 mL DOC ISCV EF(MOD-sp2) 46 % DOC ISCV ESV(MOD-bp) 80 mL DOC ISCV EF(MOD-bp) 45 % DOC ISCV LVLs ap2 7.5 mm DOC ISCV Anatomical Region Laterality Modality Echocardiography Narrative 04/24/2025 9:16 AM EST Left Ventricle: Based on the linear dimension and/or 2D volumes, the left ventricle is mildly dilated in size. There is eccentric hypertrophy. The left ventricular systolic function is mildly reduced. The LVEF as measured by biplane volume is 45%. The inferolateral and inferior luo are hypokinetic. Right Ventricle: The right ventricle is moderately dilated. The right ventricular systolic function is moderately reduced. Aortic Valve: There is mild aortic valve regurgitation. Pericardium: No pericardial effusion. Compared to the most recently available prior study, and allowing for differences in image quality and technique, LVEF improved compared to outside echocardiogram. Left Ventricle Based on the linear dimension and/or 2D volumes, the left ventricle is mildly dilated in size. There is eccentric hypertrophy. The left ventricular systolic function is mildly reduced. The LVEF as measured by biplane volume is 45%. Unable to assess diastolic function. The inferolateral and inferior luo are hypokinetic. Right Ventricle The right ventricle is moderately dilated. A catheter/lead is present in the right ventricle. The right ventricular systolic function is moderately reduced. Unable to estimate the right ventricular systolic pressure (RVSP) due to inadequate TR signal. Left Atrium The left atrial size is severely increased with an indexed volume of >48 mL/m2. The interatrial septum is intact with no evidence for an atrial septal defect. Right Atrium The right atrium is dilated by visual assessment. There is a catheter/lead present in the right atrium. IVC/SVC Based on the IVC size and respiratory variation, the estimated right atrial pressure is 3mmHg. Mitral Valve There is mild mitral annular calcification. There is mild mitral regurgitation. There is no mitral stenosis. Tricuspid Valve The tricuspid valve is grossly normal in appearance. There is trace tricuspid regurgitation. There is no tricuspid stenosis. Aortic Valve The non-coronary cusp is thickened. The left and right cusps are calcified. There is aortic annular calcification present. There is mild aortic valve regurgitation. There is no hemodynamically significant valvular aortic stenosis. Pulmonic Valve The pulmonic valve is grossly normal. There is trace pulmonic regurgitation. There is no pulmonic stenosis. Pericardium No pericardial effusion. Great Vessels The aortic root is mildly dilated. The sinus of Valsalva (aortic root) diameter is 43 mm by leading edge to leading edge method. In the maximally visualized portion, the ascending aorta appears mildly dilated. The ascending aorta diameter is 43 mm. The main pulmonary artery is not well visualized. Study Details A complete transthoracic echocardiogram using two-dimensional (2D), m-mode, color and spectral flow Doppler imaging was performed. During the study the apical, parasternal, subcostal and suprasternal view was captured. Height: 177.8 cm. Weight: 93.4 kg. BSA: 2.11 m2. Study Recommendation Compared to the most recently available prior study, and allowing for differences in image quality and technique, LVEF improved compared to outside echocardiogram. us Jeffrey Pierce MD CV ECHO PROCEDURES Final Resul t documented in this encounter Visit Diagnoses Diagnosis Acute heart failure, unspecified heart failure type documented in this encounter Administered Medications Inactive Administered Medications - up to 3 most recent administrations Medication Order MAR Action Action Date Dose Rate Site perflutren lipid microspheres (Definity) injection 10 mcL/kg 10 mcL/kg, Intravenous, Once in imaging, 1 dose, Starting on Sun04/24/25 at 0845, Until Sun04/24/25 at 0840, Routine Given 04/24/2025 8:40 AM EST documented in this encounter Additional Health Concerns Assessment Noted Time PHQ-9 Depression Total Score: 0 04/24/20 8:48 AM EST A fall risk assessment has been complete d for the patient 04/24/2025 8:49 AM EST A Body Mass Index follow-up plan has been documented for the patient 04/24/2025 9:59 AM EST documented as of this encounter Care Teams Delimer Relationship Specialty Start Date End Date Tony Chacon MD [address] [place] [address] PCP - General 09/24/20 documented as of this encounter
--- OUTSIDE RECORDS SUMMARY | 2025-04-24 09:00 | XMS_ITS | Encounter Summary ---
Author Organization Healthcare Address [address] [place] [address] Care Team Providers Care Pot Press Operator Name Role Phone Tony Chacon MD Primary Care Provider [phone] Reason for Visit * Reason Comments Follow-up Encounter Details Date Type Department Care Team (Late st Contact Info) Description 04/24/2025 9:00 AM EST Office Visit [facility] [place] [address] [place] [address] Jeffrey Pierce MD [address] [place] [address] Acute heart failure, unspecified heart failure type (Primary Dx) Social History Tobacco Use Types [...] Sign Reading Time Taken Comments Blood Pressure 131/86 04/24/2025 8:49 AM EST Pulse 69 04/24/2025 8:49 AM EST Temperature - - Respiratory Rate 16 04/24/2025 8:49 AM EST Oxygen Saturation 97% 04/24/2025 8:49 AM EST Inhaled Oxygen Concentration - - Weight 93.1 kg (205 lb 4 oz) 04/24/2025 8:49 AM EST Height 177.8 cm (5' 10 ) 04/24/2025 8:49 AM EST Body Mass Index 29.45 04/24/2025 8:49 AM EST documented in this encounter Functional Status * [...] at all 04/24/2025 8:48 AM Valentina Antonio Patient Health Questionnaire -9 Score 0 04/24/2025 8:48 AM Michael Antonio * How difficult have these problems made it for you to do your work, take care of things at home, or get along with other people? Answer Date of Assessment Author Not difficult at all 04/24/2025 8:48 AM EST Bia Go documented as of this encounter Miscellaneous Notes * Progress Notes - Jeffrey Pierce MD - 04/24/2025 9:00 AM EST Images from the original note were not included. Cardiology Clinic Note Referring provider: No referring provider defined for this encounter. PCP: Tony Chacon MD Reason for consult/visit: F/U heart failure History of Present Illness The patient is an 80-year-old gentleman with a past medical history notable for coronary artery disease, heart failure with mildly reduced ejection fraction, atrial fibrillation, hypertension, and hyperlipidemia, who is here for follow-up. He was admitted in January 2025 due to a further reduction in his ejection fraction to 20 to 25 percent of unclear etiology. He has been persistently in atrial fibrillation for a long period of time and was started on amiodarone during that admission. At the last visit, he was symptomatic, likelydue to the higher dose of amiodarone, so the dosage was decreased to 200 mg daily. Since then, he has been feeling great and reports no shortness of breath, orthopnea, PND, lower extremity edema, palpitations, or chest pain. He has tolerated his medications well. The following portions of the chart were reviewed this encounter and updated as appropriate: Tobacco Allergies Meds Problems Med Hx Surg Hx Fam Hx Review of Systems 14 point review of systems performed, pertinent positives documented in the HPI, and remaining reviewed systems are negative. Objective Visit Vitals BP 131/86 Pulse 69 Resp 16 Ht 1.778 m (5' 10 ) Wt 93.1 kg (205 lb 4 oz) SpO2 97% BMI 29.45 kg/m?? Smoking Status Never BSA 2.14 m?? Physical Exam Physical Exam Constitutional: General: He is not in acute distress. Appearance: He is not ill-appearing, toxic-appearing or diaphoretic. HENT: Head: Normocephalic and atraumatic. Right Ear: External ear normal. Left Ear: External ear normal. Eyes: Extraocular Movements: Extraocular movements intact. Neck: Vascular: No carotid bruit. Cardiovascular: Rate and Rhythm: Normal rate and regular rhythm. Heart sounds: No murmur heard. No friction rub. No gallop. Pulmonary: Effort: Pulmonary effort is normal. No respiratory distress. Breath sounds: No wheezing, rhonchi or rales. Abdominal: General: Bowel sounds are normal. There is no distension. Tenderness: There is no abdominal tenderness. There is no guarding. Musculoskeletal: Cervical back: No rigidity or tenderness. Right lower leg: No edema. Left lower leg: No edema. Skin: General: Skin is warm and dry. Neurological: Mental Status: He is oriented to person, place, and time. Gait: Gait normal. Psychiatric: Mood and Affect: Mood normal. Behavior: Behavior normal. Primary Study Review: I personally reviewed the the images/tracings of the following studies: echocardiogram and ECG Lab Review I personally reviewed the pertinent labs and are notable for TSH mildly elevated. Assessment/Plan Assessment and Plan Problem List Items Addressed This Visit None Visit Diagnoses Acute heart failure, unspecified heart failure type - Primary Relevant Medications nitroglycerin (Nitrostat) 0.4 MG SL tablet Other Relevant Orders ECG Adult (Now - Performed in your clinic) (Completed) Comprehensive metabolic panel TSH Reflex FT4 Jason Perez Sr. is a 80 y.o. male with a past medical history notable for CAD s/p CABG in 2012, HF with mildly reduced LVEF, Atrial fibrillation, HTN, HLD who presents for evaluation of HFrEF doingbetter overall. 1) HFrEF - LVEF of 20-25% - Etiology: Unclear. 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 Has not had a change in his Afib burden (has been in it persistently for >1 year). - NYHA class 2, ACC/AHA stage C - Currently mildly volume overloaded. - Current GDMT: TAMRA/ARB/ARNI: Lisinopril 10 mg daily Beta alanna: Metoprolol Succinate 50 mg daily. MRA: None. Diuretic: Bumex 1 mg daily PRN. SGLT2i: Jardiance 10 mg daily. - Device therapy: [employer] PPM (not an ICD) - Plan: - Recheck echo today showed LVEF improved to 45% (his baseline prior to this event - Continue current regimen 2) CAD - Had extreme shortness of breath in 2012, and underwent CABG. - No current anginal symptoms (CCS class 1). - Patient is on Apixiban 5 mg BID. No need for anti-platelet agents - Continue high potency statin with Atorvastatin 80 mg daily. No lipids on final - Other GDMT noted above. - Plan: Continue current regimen. 3) Atrial fibrillation - Long-standing persistent (>1 year) - Prior interventions include: Unclear. - Check ECG today showed V paced rhythm. Device interrogation showed underlying atrial fibrillationfor his atrial rhythm. - Rhythm control with Amiodarone. Currently taking 200 mg daily (reduced last visit). - TSH mildly elevated. LFTs normal. Had chest imaging during recent hospitalization. - Non-valvular atrial fibrillation. [id number] of 5. Anticoagulation strategy: Apixiban 5 mg BID. No bleeding issues noted on anticoagulation. - Recheck TSH and LFTs. Patient is doing well, and would like to continue regimen. I would stop Amiodarone at next visit if still persistently in atrial fibrillation. 4) CKD - Recheck CMP I spent 40 minutes performing the following components of the encounter (on the day of the encounter): reviewing History, examining the patient, reviewing imaging and/or labs, Independently interpreting echocardiogram, ECG and/or other imaging results, counseling the patient and family/caregiver, communicating with other health housekeeper caregiver, and entering clinical information in the EHR. Verbal consent was obtained to use ambient listening technology to assist in the documentation of the encounter: no * Progress Notes - Moses Basilio RN - 04/24/2025 9:00 AM EST [facility]: In-Person CIED Evaluation & Report Name: Jason Perez Sr. Date: 04/24/2025 : 1945 Age: 80 y.o. Device: Food Beverage Attendant: [employer] STATUS CONTROLLER-PM Permanent Programming Mode : DDDR LRL: 70 bpm MTR: 130 bpm Lead Measurments Available measurements within normal limits. See attached report. Pacing Percentage: RA 0 % RV 85 % LV 99 % Battery: Service time remainin years Evaluation: Presenting rhythm: AF with biventricular pacing response. Underlying rhythm: Lower rate limit (LRL) temporarily changed to 40. No significant intrinsic ventricular activity observed. Patient is considered dependent at time of CIED evaluation. Trends Sensing trends: Stable Impedance trends: Stable Threshold trends: Stable Rate Histograms : demonstrate good rate distribution. Heart rate trend : Stable Demonstrates appropriate sensing: Yes Demonstrates pacing capture: Yes Programming Changes: Yes. LV pacing at max output d/t device unable to perform capture threshold test, likely related to AF and PVC irregularity. During today's evaluation, LV capture threshold test performed. Lost capture at 1.0V@0.5ms. Changed output to fixed at 2.2V@0.5ms Turned minute ventilation on to passive. This will allow a ventilatory sensor metric for future use. Arrhythmias: AF, known. On OAC. Summary CIED functioning as expected, with given programming and data. Attestation I personally performed this device check and provided results to ordering provider. Cosigned by Jeffrey Pierce MD at 04/25/2025 3:03 PM EST Associated attestation - Jeffrey Pierce MD - 04/25/2025 3:03 PM EST I personally interpreted this interrogation and agree with report as dictated. Adequate battery. Afib with V-paced rhythm. documented in this encounter Plan of Treatment Not on file documented as of this encounter Procedures Procedure Name Priority Date/Time Associated Diagnosis Comments TSH REFLEX FT4 Routine 04/24/2025 9:31 AM EST Acute heart failure, unspecified heart failure type FREE T4, PLASMA Routine 04/24/2025 9:31 AM EST Acute heart failure, unspecified heart failure type COMPREHENSIVE METABOLIC PANEL, PLASMA Routine 04/24/2025 9:31 AM EST Acute heart failure, unspecified heart failure type ECG ADULT Routine 04/24/2025 8:59 AM EST Acute heart failure, unspecified heart failure type documented in this encounter Results * Free T4, Plasma (04/24/2025 9:31 AM EST) Free T4, Plasma 1.2 0.8 - 1.7 ng/dL 04/24/2025 4:19 PM EST [facility] Blood Venous blood specimen / Unknown Venipuncture / Unknown 04/24/2025 9:31 AM EST 04/24/2025 9:31 AM EST us Jeffrey Pierce MD LAB BLOOD ORDERABLES Final Res ult Performing Organization Address [facility] Co de Phone Number [facility] [address] [place] [address] * (ABNORMAL) TSH Reflex FT4 (04/24/2025 9:31 AM EST) Thyroid Stimulating Hormone, Plasma 4.91(H) 0.40 - 4.20 uIU/mL 04/24/2025 3:41 PM EST [facility] Blood Venous blood specimen / Unknown Venipuncture / Unknown 04/24/2025 9:31 AM EST 04/24/2025 9:31 AM EST us Jeffrey Pierce MD LAB BLOOD ORDERABLES Final Res ult Performing Organization Address [facility] Co de Phone Number [facility] [address] [place] [address] * (ABNORMAL) Comprehensive metabolic panel (04/24/2025 9:31 AM EST) Glucose, Plasma 103(H) 74 - 99 mg/dL 04/24/2025 3:41 PM EST [facility] BUN, Plasma 24(H) 8 - 23 mg/dL 04/24/2025 3:41 PM EST [facility] Creatinine, Plasma 1.42(H) 0.70 - 1.20 mg/dL 04/24/2025 3:41 PM EST [facility] BUN/Creatinine Ratio 17 04/24/2025 3:41 PM EST [facility] Sodium, Plasma 140 136 - 145 mmol/L 04/24/2025 3:41 PM EST [facility] Potassium, Plasma 4.8 3.6 - 4.9 mmol/L 04/24/2025 3:41 PM EST [facility] Comment:Hemolyzed - Potassiu m may be falsely elevated by approximately 0.4-0.7 mmol/L. Chloride, Plasma 105 97 - 107 mmol/L 04/24/2025 3:41 PM EST [facility] CO2, Plasma 24 22 - 29 mmol/L 04/24/2025 3:41 PM EST [facility] Anion Gap 11 6 - 16 mmol/L 04/24/2025 3:41 PM EST [facility] Total Calcium, Plasma 9.0 8.9 - 10.2 mg/dL 04/24/2025 3:41 PM EST [facility] Total Protein 7.0 6.3 - 7.9 g/dL 04/24/2025 3:41 PM EST [facility] Albumin, Plasma 4.1 3.5 - 5.2 g/dL 04/24/2025 3:41 PM EST [facility] AST, Plasma 30 10 - 50 U/L 04/24/2025 3:41 PM EST [facility] Comment:Hemolyzed, result ma y be falsely increased. ALT, Plasma 24 10 - 50 U/L 04/24/2025 3:41 PM EST [facility] Alkaline Phosphatase, Plasma 70 40 - 115 U/L 04/24/2025 3:41 PM EST [facility] Total Bilirubin, Plasma 0.7 0.2 - 1.1 mg/dL 04/24/2025 3:41 PM EST [facility] eGFRcr 49.3 mL/min/1. 73m*2 04/24/2025 3:41 PM EST [facility] Comment:Reported eGFRcr in m L/min/1.73m2 is based the CKD-EPI 2020 equation that does not use a race coefficient. Blood Venous blood specimen / Unknown Venipuncture / Unknown 04/24/2025 9:31 AM EST 04/24/2025 9:31 AM EST us Jeffrey Pierce MD LAB BLOOD ORDERABLES Final Res ult [facility] [address] [place] [address] * ECG Adult (Now - Performed in your clinic) (04/24/2025 8:59 AM EST) EKG DIAGNOSIS CLASS Abnormal MUSE ECG Ventricular Rate 70 BPM MUSE ECG Atrial Rate 340 BPM MUSE ECG QRSD Interval 164 ms MUSE ECG QT Interval 498 ms MUSE ECG QTC Interval 537 ms MUSE ECG R [place] -77 degrees MUSE ECG T Wave [place] 59 degrees MUSE ECG Diagnosis Ventricular-pace d rhythm MUSE ECG Diagnosis Biventricular pacemaker detected MUSE ECG Diagnosis MUSE ECG Diagnosis MUSE ECG Diagnosis Confirmed by Ara Fountain ([id number]) on 04/24/2025 1:50:50 PM MUSE ECG 04/24/2025 8:59 AM EST 04/24/2025 1:50 PM EST us Jeffrey Pierce MD ECG ORDERABLES Final Result MUSE ECG documented in this encounter Visit Diagnoses Diagnosis Acute heart failure, unspecified heart failure type- Primary documented in this encounter Additional Health Concerns Assessment Noted Time PHQ-9 Depression Total Score: 0 04/24/20 25 8:48 AM EST A fall risk assessment has been complete d for the patient 04/24/2025 8:49 AM EST A Body Mass Index follow-up plan has been documented for the patient 04/24/2025 9:59 AM EST documented as of this encounter Care Teams Pot Press Operator Relationship Specialty Start Date End Date Tony Chacon MD [address] [place] [address] PCP - General 09/24/20 documented as of this encounter
--- OUTSIDE RECORDS SUMMARY | 2025-04-29 10:55 | XMS_ITS | Encounter Summary ---
Author Organization Healthcare Address [address] [place] [address] Care Team Providers Care Room Inspector Name Role Phone Tony Chacon MD Primary Care Provider [phone] Encounter Details Date Type Department Care Team (Latest Contact Info) Description 04/29/2025 10:55 AM EST - 04/29/2025 11:59 PM [facility] Hospital Encounter Cardiac Imaging [address] [place] [address] Biventricular pacemaker check Discharge Disposition: Home or Self Care Social [...] on file documented as of this encounter Medications at [...] Procedure Name Priority Date/Time Associated Diagnosis Comments CARDIAC DEVICE CHECK - REMOTE - PACEMAKER Routine 04/29/2025 11:20 AM EST Biventricular pacemaker check documented in this encounter Results * CARDIAC DEVICE CHECK - REMOTE - PACEMAKER (04/29/2025 11:20 AM EST) Anatomical Region Laterality Modality Other Narrative 04/30/2025 2:21 PM EST [facility] Remote CIED Report Name: Jason Perez Sr. Date: 04/30/2025 : 1945 Age: 80 y.o. Viewing Cardiology Provider: Heaven Christian APRN, DNP Reporting period: Reporting period is the last 91 days, with at least 30 days of remote monitoring. Interim reports, if any, reviewed and addressed previously; see remote alert entries for more details. Most recent report, dated 04/30/2025, analysis and summary as follows: Device: [employer] BIV Pacemaker Permanent Programming Mode : DDDR - BiV LRL: 70 bpm MTR: 130 bpm Lead Measurements: Available measurements within normal limits. See attached report. Pacing Percentage: RA 0 % RV 93 % BIV 97 % Battery: Service time remainin.5 years Presenting rhythm: AF with BiV pacing Evaluation: Demonstrates appropriate sensing: Yes Demonstrates pacing capture: Yes Arrhythmias: AF burden 100%, Hx: of same. On Eliquis No other arrhythmias of significance Summary: CIED functioning as expected, with given programming and data. See Media for full report. Christy Christian MAMMAL CONTROL AGENT CV IMPLANTABLE CARDIAC DEV ICE PROCEDURES Final Result documented in this encounter Visit Diagnoses Diagnosis Biventricular pacemaker check documented in this encounter Additional Health Concerns Assessment Noted Time PHQ-9 Depression Total Score: 0 04/24/20 25 8:48 AM EST A fall risk assessment has been complete d for the patient 04/24/2025 8:49 AM EST A Body Mass Index follow-up plan has been documented for the patient 04/24/2025 9:59 AM EST documented as of this encounter Care Teams Room Inspector Relationship Specialty Start Date End Date Tony Chacon MD [address] [place] [address] PCP - General 09/24/20 documented as of this encounter
[2025-05-04] VITALS (9 sets, daily range): BP systolic 154–192; BP diastolic 96–112; PULSE 67–75; RESP 12–21; TEMP 36.8; O2SAT 97–99; BMI 28.7
--- NOTE | 2025-05-04 15:56 | ED_ITS ---
Discharge Plan Disposition Patient Disposition: Xfer Other Condition: Fair Prescriptions Prescriptions: No Action azithromycin 250 MG tablet 250 mg PO UD DOSE PK Qty: 6 0RF Rx Instructions: Take two (2) tablets today, then one (1) tablet days #2 thru #5 dextromethorphan-guaifenesin 5 ML liquid 5 ml PO Q6HP PRN (Reason: Cough) Qty: 240 0RF Referrals Follow up/Referrals: Provider,Referral, [Primary Care Provider, Medical] - See instructions Clinical Impressions Clinical Impression: Subarachnoid hemorrhage Stand Alone Forms Stand Alone Forms: Transfer Record - ED Instructions Patient Instructions: DI for Laceration Repair Print Language Print Language: Ukrainian Discharge ED Provider: Mariel Kemp General Adult HPI General Chief complaint: Wound/Laceration Stated complaint: AO 05/04/25 1400 laceration right side of head Time Seen by Provider: 05/04/25 15:56 History of Present Illness HPI narrative: Patient is a 89-year-old gentleman who is on Eliquis for A-fib who presents to the emergency department with a laceration to the right side of his head. Patient states that he was walking into his barn when one of his Marris ran past him caused him to fall into the board on the back of the barn he hit his head had positive loss of consciousness and fell down to the ground. Patient states that he was able to get up off the ground afterwards. Patient denies any pain in his arms or his legs. Patient has not had any numbness or weakness. Patient reports a very mild headache. Patient denies any vision changes. Patient denies any chest pain or shortness of breath. Patient states that he did not have any symptoms prior to the fall. Patient states that he is unsure when his last tetanus shot was. Patient states that he took his Eliquis this morning. Related Data Previous Rx's ?Medication ?Instructions ?Recorded azithromycin 250 mg tablet 250 mg PO UD DOSE PK #6 tab s 05/27/21 dextromethorphan-guaifenesin 10 5 ml PO Q6HP PRN Cough #240 mL 05/27/21 mg-100 mg/5 mL oral liquid Allergies Allergy/AdvReac Type Severity Reaction Status Date / Time No Known Allergies Allergy Verified 05/04/25 16:10 [facility] Disclaimer: The information contained in this section may have been updated after the patient was seen, as this information can be updated by other users. Social History Smoking Status: Never smoker alcohol intake: never current occupational status: other Travel in the last 8 weeks?: None ROS Obtained: Yes All systems reviewed & no additional complaints except as documented and Yes Systems reviewed as appropriate & no additional complaints except as documented Physical Exam General General appearance: alert and in no apparent distress Head Head exam: normocephalic, normal inspection and other (4 cm laceration to the right temporal bone) Eye Eye exam: Present normal appearance, PERRL and EOMI; Absent scleral icterus ENT ENT exam: Present normal exam and normal external ear exam Neck Neck exam: Present normal inspection, full ROM and tenderness (no midline cervical spine tenderness) Chest Chest inspection: Present normal inspection and symmetric chest wall rise Respiratory Respiratory exam: Present normal lung sounds bilaterally; Absent respiratory distress or wheezes Cardiovascular Cardiovascular exam: Present regular rate, normal rhythm and normal heart sounds Abdominal Exam Abdominal exam: Present soft and distention; Absent tenderness, guarding or rebound Extremities Exam Extremities exam: Present normal inspection and full ROM Back Exam Back exam: Present normal inspection and full ROM Neurological Exam Neurological exam: Present alert, oriented X3, CN II-XII intact, normal gait and motor sensory deficit Psychiatric Psychiatric exam: Present normal affect and normal mood Skin Skin exam: Present warm and dry Medical Decision Making Medical Records Medical records reviewed: Yes I reviewed the patient's medical records. Screening: Per USPSTF and CDC recommendations, given the prevalence of disease in our region, it is our hospital?s policy to screen for HIV and viral Hepatitis for all patients aged 18 and over and those with ongoing risk factors. Robert Inquiry Pt receiving controlled substance: No Vital Signs: 05/04/25 16:04 05/04/25 16:30 05/04/25 17:31 Temperature 98.2 F Temperature Source Oral Pulse Rate 70 70 Pulse Rate [Right Brachial] 70 Respiratory Rate 16 16 21 Blood Pressure 154/98 H 159/97 H Blood Pressure [Right Arm] 159/112 H Blood Pressure Mean Blood Pressure Mean [Right Arm] 127 Blood Pressure Source [Right Arm] Automatic Cuff Blood Pressure Position [Right Arm] Sitting 02 Sat by Pulse Oximetry 98 99 97 Oxygen Delivery Method Room Air 05/04/25 18:00 05/04/25 18:32 05/04/25 18:37 Temperature Temperature Source Pulse Rate 70 Pulse Rate [Right Brachial] Respiratory Rate 15 Blood Pressure 155/96 H 192/96 H 179/105 H Blood Pressure [Right Arm] Blood Pressure Mean 124 115 Blood Pressure Mean [Right Arm] Blood Pressure Source [Right Arm] Blood Pressure Position [Right Arm] 02 Sat by Pulse Oximetry 97 Oxygen Delivery Method 05/04/25 18:42 05/04/25 18:42 05/04/25 19:04 Temperature Temperature Source Pulse Rate 67 Pulse Rate [Right Brachial] Respiratory Rate 12 Blood Pressure 184/104 H 192/96 H Blood Pressure [Right Arm] Blood Pressure Mean 130 Blood Pressure Mean [Right Arm] Blood Pressure Source [Right Arm] Blood Pressure Position [Right Arm] 02 Sat by Pulse Oximetry 99 Oxygen Delivery Method Lab Data Lab results reviewed: Yes I reviewed the patient's lab results. Lab Results 05/04/25 17:36: WBC 7.9, RBC 4.46 L, Hgb 14.6, Hct 44.5, MCV 99.8 H, MCH 32.7 H, MCHC 32.8, RDW 14.1, Plt Count 146, MPV 10.3, Neut % (Auto) 85.7 H, Lymph % (Auto) 6.8 L, [place] % (Auto) 5.4, Eos % (Auto) 1.1, Baso % (Auto) 0.5, Neut # (Auto) 6.8, Lymph # (Auto) 0.5 L, [place] # (Auto) 0.4, Eos # (Auto) 0.1, Baso # (Auto) 0.0, Total Counted 100, Neutrophils % (Manual) 80 H, Band Neutrophils % 4.0, Lymphocytes % (Manual) 13, Monocytes % (Manual) 2, Eosinophils % (Manual) 1, Platelet Estimate Normal, RBC Morphology Normal, PT 10.9, INR 0.98, APTT 29.1, Sodium 137, Potassium 5.1, Chloride 104, Carbon Dioxide 30, Anion Gap 8.1, BUN 26 H, Creatinine 1.30 H, Estimated Creat Clear 56, Estimated GFR 53 L, Est GFR ( Amer) 64, Glucose 117 H, Calcium 9.0, Total Bilirubin 0.8, AST 36, ALT 25, Alkaline Phosphatase 95, Total Protein 7.6, Albumin 4.5, Globulin 3.1, Albumin/Globulin Ratio 1.5 05/04/25 17:36 05/04/25 17:36 Orders (Tests/Meds): ED MEDICATIONS Generic Name Dose Route Start Last Admin Trade Name Shania PRN Reason Stop Dose Admin Labetalol HCl 10 mg 05/04/25 19:00 05/04/25 19:04 Labetalol 20mg/4ml Syringe IV 05/04/25 19:01 10 mg ONCE ONE Administration Discontinued Medications Generic Name Dose Route Start Last Admin Trade Name Shania PRN Reason Stop Dose Admin Acetaminophen 1,000 mg 05/04/25 16:17 05/04/25 16:24 Acetaminophen 500mg Tab PO 05/04/25 16:18 1,000 mg ONCE ONE Administration Tetanus/Reduced Diphtheria/Acell Pertussis 0.5 ml 05/04/25 16:17 05/04/25 16:24 Tet/Diphth/Pert-Adult 0.5ml Syringe IM 05/04/25 16:18 0.5 ml .ONCE ONE Administration ORDERS Category Date Time Status CT cervical spine wo con Stat Cat Scan 05/04/25 16:[address] head/brain wo con Stat Cat Scan 05/04/25 16:17 Completed CBC w/Auto Diff [Complete Blood Count Auto Diff] Stat Lab 05/04/25 17:36 Completed CMP [Comprehensive Metabolic Panel] Stat Lab 05/04/25 17:36 Completed PT/PTT Stat Lab 05/04/25 17:36 Completed Prothrombin Time INR Stat Lab 05/04/25 17:36 Completed Medical Decision Narrative: Patient is an otherwise healthy 80-year-old male with a past medical history of A-fib on [facility] who presented to the emergency department with a laceration to the right side of his head and positive loss of consciousness. On arrival, patient was hemodynamically stable with unremarkable vital signs. Differential includes but not limited to: Intracranial hemorrhage, cervical spine fracture, laceration, venous bleeding, amongst others. On exam, patient had a 4 cm laceration to the right temporal region with no significant active bleeding. Patient had a nonfocal neuroexam. Patient had no tenderness of his extremities was able to move everything appropriately. Patient had no cervical spine tenderness. Patient had no other signs of trauma. Patient's laceration to the right side of his head was extensively cleaned and 7 whit were placed. Patient's tetanus was updated. Patient was given IV Tylenol for pain control. CT head and CT cervical spine were obtained. Patient CT head showed concern for left-sided subarachnoid hemorrhage concern for possible contrecoup injury. Patient started CT cervical spine showed no acute pathology. Given that patient is on Eliquis, with subarachnoid hemorrhage, this is considered a big 3 head bleed. I did talk to the [facility] and the transfer center as well as neurosurgery. Patient was sent for transfer in stable condition. Just prior to transfer, patient's blood pressure was 184/104. Patient was given 10 of labetalol. Patient has otherwise not required any other medications for symptom control. Critical Care Critical Care Time Critical Care Time: No
--- NOTE | 2025-05-04 16:07 | ECG_ITS ---
APPROVED REPORT Exam: Resting ECG HR:70 bpm ECG Measurements Heart Rate 70 AXES QRSd 123 QRS -55 QT 423 T 174 QTc 444 Conclusion Ventricular paced, no acute ST or T wave changes concerning for ischemia Electronically signed by : Mariel Kemp, 05/06/2025 01:01:52
--- NOTE | 2025-05-04 16:17 | CT_ITS ---
PROCEDURE INFORMATION: Exam: CT Cervical Spine Without Contrast Exam date and time: 05/04/2025 4:57 PM Age: 80 years old Clinical indication: Injury or trauma; Fall; Blunt trauma; Additional info: Midline neck tenderness TECHNIQUE: Imaging protocol: Computed tomography of the cervical spine without contrast. Radiation optimization: All CT scans at this facility use at least one of these dose optimization techniques: automated exposure control; mA and/or kV adjustment per patient size (includes targeted exams where dose is matched to clinical indication); or iterative reconstruction. COMPARISON: CT HEAD/BRAIN WO CON 05/04/2025 4:55 PM FINDINGS: Limitations: Exam is motion limited. Bones: Cervical lordosis is preserved. Posterior elements are aligned. No spondylolisthesis. Vertebral body heights are maintained. Age-indeterminate fractures of inferiorly oriented osteophytes projecting from the anterior C5 and C6 vertebral bodies (series 1002, image 38 and 41). Multilevel degenerative changes including facet arthrosis and uncovertebral joint spurring resulting in varying degrees of bilateral foraminal narrowing. No significant spinal canal stenosis. Craniocervical junction is maintained. Degenerative changes of the atlantoaxial joint. Atlantodental interval is symmetric. Lungs: Lung apices are normal. Soft tissues: Prevertebral and paraspinal soft tissues are grossly unremarkable. IMPRESSION: 1. Motion limited study. 2. Age-indeterminate fractures of inferiorly oriented osteophytes projecting from the anterior C5 and C6 vertebral bodies (series 1002, image 38 and 41), suspect chronic. Correlate clinically. MRI may be obtained for further evaluation as indicated. 3. No other acute fractures are visualized
--- NOTE | 2025-05-04 16:17 | CT_ITS ---
PROCEDURE INFORMATION: Exam: CT Head Without Contrast Exam date and time: 05/04/2025 4:55 PM Age: 80 years old Clinical indication: Injury or trauma; Fall; Blunt trauma (contusions or hematomas); Additional info: Fall on blood thinners TECHNIQUE: Imaging protocol: Computed tomography of the head without contrast. Radiation optimization: All CT scans at this facility use at least one of these dose optimization techniques: automated exposure control; mA and/or kV adjustment per patient size (includes targeted exams where dose is matched to clinical indication); or iterative reconstruction. COMPARISON: No relevant prior studies available. FINDINGS: Brain: Subtle hyperdense foci associated with the left posterior frontal and parietal sulci (series 3, image 51 and 55; series 1002, images 46-47). No significant edema or mass effect. Chronic right basal ganglia lacunar infarct. Cerebral ventricles: Generalized age-related cerebral volume loss. No hydrocephalus. Paranasal sinuses: Fluid levels with aerated secretions in the left sphenoid and bilateral maxillary sinuses. Lkil-vj-vbwsquqt scattered paranasal sinus mucosal thickening. Mastoid air cells: Visualized mastoid air cells are well aerated. Orbital cavities: Bilateral lens replacement. Bones: No acute calvarial fracture. Soft tissues: Right parietal scalp laceration and mild soft tissue swelling Vasculature: Calcifications of the bilateral carotid siphons, vertebral arteries, and basilar artery. Dense calcification involves the fznhf-aaomglx-ebwh-left proximal MCAs. IMPRESSION: 1. Subtle hyperdense foci associated with the left posterior frontal sulci, possibly reflecting small subarachnoid hemorrhage related to contrecoup injury versus artifact. Recommend short-term interval follow-up CT. 2. Multiple paranasal sinus fluid levels with aerated secretions. Correlate clinically for acute sinusitis. 3. Intracranial atherosclerotic calcifications involving the bilateral MCAs. COMMENTS: THIS REPORT CONTAINS FINDINGS THAT MAY BE CRITICAL TO PATIENT CARE. The exam findings were verbally communicated by me to TRAVIS VALLADARES via telephone conference at 5:23 PM EST on 05/04/2025. The findings were acknowledged and understood.
--- OUTSIDE RECORDS SUMMARY | 2025-05-04 16:17 | XMS_ITS | Data Portability ---
Author Organization [facility] NAVIN Ruiz ATLANTA CLOSED Address [address] [place] [address] Care Team Providers Care Oil Derrick Operator Name Role Phone ARIES CONNER Primary Care Provider Assessment No assessment recorded. Plan of Treatment Reminders Order Date Submit Date Provider Last Modified By Organization Details Last Modified Time Details Appointments None recorded. Lab surgical pathology study 2023 024 [facility], [address] [place] [address], [id number], 4 13:36:54 Referral None recorded. Procedures None recorded. Surgeries None recorded. Imaging None recorded. Medication Orders None recorded. Patient TargetsNo targets recorded. Patient InstructionsNo instructions recorded. Reason for Referral None Reported. Results Created Date Observation Date Name Description Value Unit Range Abnormal Flag Note LastModifiedBy Organization Detail LastModifiedTime Result Notes None recorded. Procedures Surgical History Date Name Laterality Status Provider Name and Address Organization Details Recorded Time 4 DAK - Biopsy, Tangential completed Hongchrissie Lrherberth [facility] 10/18/2023 15:54:04 Imaging Results None recorded. Procedure Notes None recorded. Medical Equipment None Reported. Allergies No known drug allergies Medications Name Sig Start Date Stop Date Status Note LastModified by Organization Details LastModified Time atorvastatin active Not Available Not Available Not Available nitroglycerin active Not Available Not Available Not Available diclofenac sodium active Not Available Not Available Not Available carvedilol active Not Available Not Av ailable Not Available lisinopril active Not Available Not Av ailable Not Available Eliquis active Not Available Not Avail able Not Available Jardiance active Not Available Not May ilable Not Available Vitals None Recorded Social History None recorded. Functional Status None recorded. Mental Status None recorded. Family History Nothing Reported. Medical History Condition Response Skin Cancer Y Past Encounters Encounter ID Performer Location Encounter Start Date Encounter Closed Date Diagnosis/Indication Diagnosis SNOMED-CT Code Diagnosis ICD10 Code Diagnosis IMO Codes Diagnosis Note [id number] TERESA MARINO PA-C [address] [id number] 10/18/2023 15:06:44 10/24/2023 08:59:51 Neoplasm of uncertain behavior of skin 73652475 D48.5 Tissue sample recommende d, specifical ly a blade biopsy. [id number] MIGUEL ANGEL HARO MD [address] [id number] 01/15/2024 07:36:37 01/23/2024 12:56:45 Health Concerns Section Related Observation LastModified by Organization Detai ls LastModified Time None Recorded Concern Status LastModified by Organization Details LastModified Time None Recorded Advance Directives Directive None Recorded Payers Insurance Date Sequence Insurance Name Policy Number Policy Ryan Covered Member ID Ryan Member ID Guarantor Name 12/25/2023 1 [employer] (MEDICARE REPLACEMENT/AD VANTAGE - PPO) Jason Perez [id number] Jason Perez 04/25/2024 1 [place] BCBS OF [facility] [employer] ACC[employer] (MEDICARE REPLACEMENT REGIONAL PPO) [id number] Jason Perez [id number] Jason Perez Notes Date Note Type Note Provider Name and Address Organization Details Recorded Time 10/18/2023 text/html ROS as noted in the HPI Skin LesionLocation: R CheekLong hx NMSCReports: Non-healing, bleeding, scabbing. 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 Denies having Mohs for the 2 on the face TERESA MARINO PA-C [address] [place], [address], [facility] 10/19/2023 10:10:23
--- OUTSIDE RECORDS SUMMARY | 2025-05-04 16:17 | XMS_ITS | Encounter Summary ---
Author Organization Healthcare Address [address] [place] [address] Care Team Providers Care Pattern Lease Inspector Name Role Phone Tony Chacon MD Primary Care Provider [phone] Encounter Details Date Type Department Care Team (Latest Contact Info) Description 04/29/2025 Travel Social History Tobacco Use Types Packs/Day Years [...] on file documented as of this encounter Visit Diagnoses Not on filedocumented in this encounter Additional Health Concerns Assessment Noted Time PHQ-9 Depression Total Score: 0 04/24/20 25 8:48 AM EST A fall risk assessment has been complete d for the patient 04/24/2025 8:49 AM EST A Body Mass Index follow-up plan has been documented for the patient 04/24/2025 9:59 AM EST documented as of this encounter Care Teams Pattern Lease Inspector Relationship Specialty Start Date End Date Tony Chacon MD [address] [place] [address] PCP - General 09/24/20 documented as of this encounter
--- OUTSIDE RECORDS SUMMARY | 2025-05-04 16:17 | XMS_ITS | Encounter Summary ---
Author Organization [employer] ([place], [place], [place], [place], [place]) Address [address] [place] [address] Care Team Providers Care Teacher Education Instructor Name Role Phone Tony Chacon MD Primary Care Provider [phone] Floridalma Grissom PA-C Unavailable [phone] Encounter Details Date Type Department Care Team (Late st Contact Info) Description 07/17/2022 Telephone [facility] Cardiology [address] [phone] Ran Fish MD [address] [facility] [address] [place] [address] Social History Tobacco Use Types Packs/Day Years Used Date Smoking Tobacco: Never Smokeless Tobacco: Never Sex and Gender Information Value Date Recorded Sex Assigned at Not on file Legal Sex Male 4:11 PM CDT Gender Identity Not on file Sexual Orientation Not on file documented as of this encounter Miscellaneous Notes * Telephone Encounter - Cristin Salguero - 07/17/2022 11:16 AM EST Pt called and stated he needed cardiac clearance for a surgery he is having on 08/07/22. He stated he needed to move his appointment date before that date. I moved his appointment date to 07/21/22 with Tony Gonzalez but wasn't sure if he can give cardiac clearance. Please advise pt at [phone] MOTIVE SERVICE DIRECTOR documented in this encounter Plan of Treatment Not on file documented as of this encounter Visit Diagnoses Not on filedocumented in this encounter Care Teams Teacher Education Instructor Relationship Specialty Start Date End Date Tony Chacon MD [address] [place] [phone] PCP - General Family Medicine 03/29/22 Floridalma Grissom, PA-C [address] [place] [address] Cardiology 09/27/23 documented as of this encounter
--- OUTSIDE RECORDS SUMMARY | 2025-05-04 16:17 | XMS_ITS | Encounter Summary ---
Author Organization [employer] ([place], [place], [place], [place], [place]) Address [address] [place] [address] Care Team Providers Care Blow Mold Technician Name Role Phone Tony Chacon MD Primary Care Provider [phone] Floridalma Grissom PA-C Unavailable [phone] Encounter Details Date Type Department Care Team (Late st Contact Info) Description 07/12/2018 Transcribed Document [facility] Cardiology [address] [phone] Angelito Bai MD [address] [facility] [address] [place] [address] Social History Tobacco Use Types Packs/Day Years Used Date Smoking Tobacco: Never Assessed Sex and Gender Information Value Date Recorded Sex Assigned at Not on file Legal Sex Male 4:11 PM CDT Gender Identity Not on file Sexual Orientation Not on file documented as of this encounter Miscellaneous Notes * Cerner Conversion Note - Angelito Bai MD - 07/12/2018 9:23 AM EST DATE OF STUDY: 07/11/2018 LEXISCAN STRESS TEST DIAGNOSIS: Chest pain. READING PHYSICIAN: Dr. Angelito Bai. PRIMARY CARE PHYSICIAN: Dr. Tony Chacon. NAPHTHA WASHING SYSTEM OPERATOR: Dr. Jayme Marsh. PROCEDURE IN DETAIL: Patient was brought to the cardiovascular lab after informed consent and was given Lexiscan infusion per protocol. Baseline heart rate 71 beats per minute, augmenting to a maximum of 82 beats per minute. Baseline blood pressure 147/99 mmHg, augmenting to a maximum of 151/79 mmHg. Patient tolerated the procedure well. No complaints of chest pain or shortness of breath. Patient received 11 mCi of technetium-99 IV at rest and a stress dose of 33 mCi of technetium-99 IV at stress, undergoing SPECT imaging after each dose. Images were also gated to evaluate regional wall motion and calculated left ventricular ejection fraction. Baseline ECG revealed paced rhythm. ECG during stress revealed paced rhythm, indeterminate for any diagnostic criteria of ischemia. IMPRESSION: Normal Lexiscan myocardial perfusion stress test. 1. Normal myocardial perfusion, no evidence of ischemia or scar. 2. Normal systolic function with left ventricular ejection fraction calculated at 52%. Normal wall motion, normal myocardial thickening. 3. No evidence of transient ischemic dilatation. TID ratio 1.0. Stress ECG is indeterminate secondary to paced rhythm at baseline. Angelito Bai M.D. Dict: 07/12/2018 08:23:56 Trans: 07/12/2018 09:04:19 CC1: Angelito Bai M.D. CC2: Dr. Tony Chacon CC3: Leroy Marsh MD documented in this encounter Plan of Treatment Not on file documented as of this encounter Visit Diagnoses Not on filedocumented in this encounter Care Teams Blow Mold Technician Relationship Specialty Start Date End Date Tony Chacon MD [address] [place] [phone] PCP - General Family Medicine 03/29/22 Floridalma Grissom PA-C [address] [facility] [address] [place] [address] Cardiology 09/27/23 documented as of this encounter
--- OUTSIDE RECORDS SUMMARY | 2025-05-04 16:17 | XMS_ITS | Clinical Summary ---
Author Organization Healthcare Address [address] [place] [address] Care Team Providers Care Account Strategist Name Role Phone Tony Chacon MD Primary Care Provider Allergies No known active allergies Medications atorvastatin (Lipitor) 80 MG tablet Take 1 tablet by mouth daily. Active amiodarone (Pacerone) 200 MG tablet Take 1 tablet by mouth daily. 90 tablet 3 5 Active lisinopril 10 MG tablet Take 1 tablet by mouth daily. 90 tablet 3 5 Active metoprolol succinate XL (Toprol-XL) 25 MG 24 hr tablet Take 1 tablet by mouth daily. 90 tablet 3 5 Active lisinopril 5 MG tablet Take 1 tablet by mouth daily. Active Eliquis 5 MG tablet Take 1 tablet by mouth 2 times a day. Active bumetanide (Bumex) 1 MG tablet Take 1 tablet by mouth as needed. Active nitroglycerin (Nitrostat) 0.[address] 1 tablet under the tongue As Directed. EVERY 5 MINUTES NEEDED FOR CHEST PAIN PUT 1 PILL UNDER TONGUE. NO MORE THAN 3 DOSES IN 15MIN.CALL 911 IF PAIN UNRELIEVED 5MIN AFTER 1ST DOSE. Active Jardiance 10 MG Take 1 tablet by mouth daily. Active Active Problems No known active problems Encounters Date Type Department Care Team Description 04/29/2025 10:55 AM EST - 04/29/2025 11:59 PM EST Hospital Encounter Cardiac Imaging [address] [place] [address] Biventricular pacemaker check Discharge Disposition: Home or Self Care 04/29/2025 Travel 04/24/2025 9:00 AM EST Office Visit [facility] [place] [address] [place] [address] Jeffrey Pierce MD Acute heart failure, unspecified heart failure type (Primary Dx) 04/24/2025 8:00 AM EST - 04/24/2025 11:59 PM EST Hospital Encounter Cardiac Imaging [address] [place] [address] Acute heart failure, unspecified heart failure type Discharge Disposition: Home or Self Care 04/24/2025 Travel 02/27/2025 Orders Only [facility] [place] [address], [address] [place] [id number] Libra Chu RN from Last 3 Months Immunizations Immunization Administration Dates Next Due Influenza Vaccine, Quadrivalent, Adjuvanted 02/12 Influenza, high-dose, quadrivalent 02/14/2023,,02/10/2020 Influenza, trivalent, adjuvanted 02/20/2025,10/2016 [employer] COVID-19 Vac cine (Purple Cap) 1206/10/2020 Family History Medical History Relation Name Comments Conversions - Other Father Medical history non-contributory Conversions - Other Mother Medical history non-contributory Relation Name Status Comments Father Mother Social History Tobacco Use Types Packs/Day Years Used Date Smoking Tobacco: Never Passive Smoke Exposure: Past Smokeless Tobacco: Never Tobacco Cessation:Counseling Given: No Alcohol Use Standard Drinks/Week Comments No 0 [...] on file Sexual Orientation Not on file Last Filed Vital Signs Vital Sign Reading Time Taken Comments Blood Pressure 135/85 04/24/2025 9:03 AM EST Pulse 70 04/24/2025 9:03 AM EST Temperature 36.7 C (98 F) 09/04/2017 9:10 AM EDT Respiratory Rate 16 04/24/2025 8:49 AM EST Oxygen Saturation 97% 04/24/2025 8:49 AM EST Inhaled Oxygen Concentration - - Weight 93.1 kg (205 lb 4 oz) 04/24/2025 8:49 AM EST Height 177.8 cm (5' 10 ) 04/24/2025 8:49 AM EST Body Mass Index 29.45 04/24/2025 8:49 AM EST Plan of Treatment Health Maintenance Due Date Last Done Comments [facility]-Medicare Annual Wellness (AWV) 1943 [facility]-/Child/Adol SDOH Screenings 1943 [facility]- SDOH Screenings 1961 [facility]-Adult SDOH Screenings 1961 [facility]-DTaP,Tdap,and Td Vaccines (1 - Tdap) 1962 [facility]-Pneumococcal Vaccine: 50+ Years (1 of 1 - PCV) 1993 [facility]-Zoster Vaccines (1 of 2) 1993 [facility]-RSV Vaccine: 60+ Years or (1 - 1-dose 75+ series) 2018 [facility]X-[id number]-66 Vaccine (2 - 2024- season) 2025 06/10/2020 [facility]-Depression Screening 04/24/2026 04/24/2025, 04/13 [facility]-Influenza Vaccine Completed 02/20/2025 , 02/14/2023, 02/21/2022, Additional history exists [facility]-Obesity Intervention Completed 04/24/2025, 01/12 HPV Vaccines (No Doses Required) Completed [facility]-HIB Vaccines Aged Out No longer e ligible based on patient's age to complete this topic [facility]-Hepatitis A Vaccines Aged Out No longer eligible based on patient's age to complete this topic [facility]-IPV Vaccines Aged Out No longer e ligible based on patient's age to complete this topic [facility]-Rotavirus Vaccines Aged Out No lo nger eligible based on patient's age to complete this topic Procedures Procedure Name Priority Date/Time Associated Diagnosis Comments CARDIAC DEVICE CHECK - REMOTE - PACEMAKER Routine 04/29/2025 11:20 AM EST Biventricular pacemaker check FREE T4, PLASMA Routine 04/24/2025 9:31 AM EST Acute heart failure, unspecified heart failure type TSH REFLEX FT4 Routine 04/24/2025 9:31 AM EST Acute heart failure, unspecified heart failure type COMPREHENSIVE METABOLIC PANEL, PLASMA Routine 04/24/2025 9:31 AM EST Acute heart failure, unspecified heart failure type ECG ADULT Routine 04/24/2025 8:59 AM EST Acute heart failure, unspecified heart failure type ECHO, ADULT TRANSTHORACIC COMPLETE Routine 04/24/2025 8:49 AM EST Acute heart failure, unspecified heart failure type from Last 3 Months Results * CARDIAC DEVICE CHECK - REMOTE - PACEMAKER (04/29/2025 11:20 AM EST) Anatomical Region Laterality Modality Other Narrative 04/30/2025 2:21 PM EST [facility] Remote CIED [...] 04/30/2025, analysis and summary as follows: Device: [employer] BIV Pacemaker Permanent Programming Mode : [...] and data. See Media for full report. us Christy Christian CUTTER HEAD SHARPENER CV IMPLANTABLE CARDIAC DEV ICE PROCEDURES Final Result * (ABNORMAL) TSH Reflex FT4 (04/24/2025 9:31 AM EST) Thyroid Stimulating Hormone, Plasma 4.91(H) 0.40 - 4.20 uIU/mL 04/24/2025 3:41 PM EST [facility] Blood Venous blood specimen / Unknown Venipuncture / Unknown 04/24/2025 9:31 AM EST 04/24/2025 9:31 AM EST Jeffrey Pierce MD LAB BLOOD ORDERABLES Final Res ult Performing Organization Address City/[facility]/ZIP Co de Phone Number [facility] [address] [place] [address] * Free T4, Plasma (04/24/2025 9:31 AM EST) Free T4, Plasma 1.2 0.8 - 1.7 ng/dL 04/24/2025 4:19 PM EST [facility] Blood Venous blood specimen / Unknown Venipuncture / Unknown 04/24/2025 9:31 AM EST 04/24/2025 9:31 AM EST Jeffrey Pierce MD LAB BLOOD ORDERABLES Final Res ult Performing Organization Address City/[facility]/ZIP Co de Phone Number [facility] [address] [place] [address] * (ABNORMAL) Comprehensive metabolic panel (04/24/2025 9:31 AM EST) Glucose, Plasma 103(H) 74 - 99 mg/dL 04/24/2025 3:41 PM EST [facility] BUN, Plasma 24(H) 8 - 23 mg/dL 04/24/2025 3:41 PM EST [facility] Creatinine, Plasma 1.42(H) 0.70 - 1.20 mg/dL 04/24/2025 3:41 PM EST [facility] BUN/Creatinine Ratio 17 04/24/2025 3:41 PM [facility] Sodium, Plasma 140 136 - 145 mmol/L 04/24/2025 3:41 PM [facility] Potassium, Plasma 4.8 3.6 - 4.9 mmol/L 04/24/2025 3:41 PM [facility] Comment:Hemolyzed - Potassiu m may be falsely elevated by approximately 0.4-0.7 mmol/L. Chloride, Plasma 105 97 - 107 mmol/L 04/24/2025 3:41 PM [facility] CO2, Plasma 24 22 - 29 mmol/L 04/24/2025 3:41 PM [facility] Anion Gap 11 6 - 16 mmol/L 04/24/2025 3:41 PM [facility] Total Calcium, Plasma 9.0 8.9 - 10.2 mg/dL 04/24/2025 3:41 PM [facility] Total Protein 7.0 6.3 - 7.9 g/dL 04/24/2025 3:41 PM [facility] Albumin, Plasma 4.1 3.5 - 5.2 g/dL 04/24/2025 3:41 PM [facility] AST, Plasma 30 10 - 50 U/L 04/24/2025 3:41 PM [facility] Comment:Hemolyzed, result ma y be falsely increased. ALT, Plasma 24 10 - 50 U/L 04/24/2025 3:41 PM [facility] Alkaline Phosphatase, Plasma 70 40 - 115 U/L 04/24/2025 3:41 PM [facility] Total Bilirubin, Plasma 0.7 0.2 - 1.1 mg/dL 04/24/2025 3:41 PM [facility] eGFRcr 49.3 mL/min/1. 73m*2 04/24/2025 3:41 PM [facility] Comment:Reported eGFRcr in m L/min/1.73m2 is based the CKD-EPI 2020 equation that does not use a race coefficient. Blood Venous blood specimen / Unknown Venipuncture / Unknown 04/24/2025 9:31 AM EST 04/24/2025 9:31 AM EST us Jeffrey Jonathan Pierce MD LAB BLOOD ORDERABLES Final Res ult [facility] [address] [place] [address] * ECG Adult (Now - Performed in your clinic) (04/24/2025 8:59 AM EST) EKG DIAGNOSIS CLASS Abnormal MUSE ECG Ventricular Rate 70 BPM MUSE ECG Atrial Rate 340 BPM MUSE ECG QRSD Interval 164 ms MUSE ECG QT Interval 498 ms MUSE ECG QTC Interval 537 ms MUSE ECG R Merna -77 degrees MUSE ECG T Wave Merna 59 degrees MUSE ECG Diagnosis Ventricular-pace d rhythm MUSE ECG Diagnosis Biventricular pacemaker detected MUSE ECG Diagnosis MUSE ECG Diagnosis MUSE ECG Diagnosis Confirmed by Ara Fountain ([id number]) on 04/24/2025 1:50:50 PM MUSE ECG 04/24/2025 8:59 AM EST 04/24/2025 1:50 PM EST us Jeffreysaravanan Pierce MD ECG ORDERABLES Final Result Performing Organization Address City/[facility] Co de Phone Number MUSE ECG * ECHO, ADULT TRANSTHORACIC COMPLETE (04/24/2025 8:49 [...] mean PAP 52 mmHg DOC ISCV PA MD(ACCEL) 52.1 mmHg DOC ISCV PA acc slope [...] MD CV ECHO PROCEDURES Final Resul t from Last 3 Months Insurance [address] [id number] [facility] MEDICARE Care Teams Account Strategist Relationship Specialty Start Date End Date Tony Chacon MD [address] [place] [address] PCP - General 09/24/20
--- OUTSIDE RECORDS SUMMARY | 2025-05-04 16:17 | XMS_ITS | Patient Health Record ---
Author Organization [facility] Address [address], [place] [id number] Care Team Providers Care Stemming Machine Operator Name Role Phone Tony Chacon Unavailable [phone] Allergies No Known Allergies Reason For Referral No Information Medications Medication SIG (Take, Route, Frequency, Duration) Notes Start Date End Date Status Aspirin 81 MG Tablet 1 tablet Orally Onc e a day; Duration: 30 day(s) 12/30/2012 Active Eliquis 5 MG Tablet Orally Active Carvedilol 25 MG Tablet Orally BID Active Lisinopril 5 MG Tablet take 1/2 tablet b y mouth once daily; Duration: 60 Active Atorvastatin Calcium 40 mg Tablet take 1 tablet by mouth at bedtime Orally Once a day; Duration: 30 Active oxyBUTYnin Chloride ER 5 MG Tablet Extended Release 24 Hour TAKE 1 TABLET BY MOUTH ONCE DAILY; Duration: 90 Active Naproxen 500 MG Tablet 1 tablet with lorenza d or milk as needed Orally every 12 hrs; Duration: 15 days 10/16/2018 Active Diclofenac Sodium 1 % Gel as directed Tr anstone QID; Duration: 30 day(s) Active Social History Social History Additional Details Category Social Info Options Details Miscellaneous: Marital status single Occupation: Retired Problems Problem Type SNOMED Code ICD Code Onset Dates Problem Status W/U Status Risk Notes Problem Benign hypertension (51500374) hypertension, benign (401.1) Active confirmed Low Problem Dysthymia (97318908) 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) Active confirmed Problem Hearing loss (60491503) Unspecified hearing loss, unspecified ear (H91.90) Active confirmed Problem Essential hypertension (92861076) Essential (primary) hypertension (I10) Active confirmed Problem History of musculoskeletal operation (396253771) Aftercare following joint replacement surgery (Z47.1) Active confirmed Problem Carpal tunnel syndrome (42258813) Carpal tunnel syndrome, bilateral upper limbs (G56.03) Active confirmed Problem Body mass index 30+ - obesity (116043309) Body mass index [BMI] 30.0-30.9, adult (Z68.30) Active confirmed Plan Of Treatment No Information Insurance Providers Payer Name Payer Address Payer Phone Subscriber Number Group Number Insured Name Patient Relationship to Insured Coverage Start Date Coverage End Date An[employer] Medicare [address] [place] [address] [id number] Jason Perez Self - patient is the insured Medicare Part A [address] [place] [address] [id number] Jason Perez Self - patient is the insured Medical (General) History Surgical History Surgery Date(Month/Year) cardiac surgery-bypass 2012 pacemaker
--- OUTSIDE RECORDS SUMMARY | 2025-05-04 16:17 | XMS_ITS | Encounter Summary ---
Author Organization Healthcare Address [address] [place] [address] Care Team Providers Care Fastener Sewing Machine Operator Name Role Phone Tony Chacon MD Primary Care Provider [phone] Encounter Details Date Type Department Care Team (Latest Contact Info) Description 04/24/2025 Travel Social History Tobacco Use Types Packs/Day [...] on file documented as of this encounter Functional Status * Over the [...] Bia Go documented as of this encounter Plan of [...] documented as of this encounter Care Teams Fastener Sewing Machine Operator Relationship Specialty Start Date End Date Tony Chacon MD [address] [place] [address] PCP - General 09/24/20 documented as of this encounter
--- OUTSIDE RECORDS SUMMARY | 2025-05-04 16:18 | XMS_ITS | Encounter Summary ---
[facility] Address [address] [place] [address] Care Team Providers Care Drug Room Operator Name Role Phone Tony Chacon MD Primary Care Provider Encounter Details Date Type Department Care Team (Latest Contact Info) Description 04/14/2025 Travel Social History Tobacco Use Types Packs/Day [...] or training? Not on file Preferred Language Slovenian 08/08/2022 Sex and Gender Information Value Date Recorded Sex Assigned at Not on file Legal Sex Male 11:56 AM EDT Gender Identity Not on file Sexual Orientation Not on file documented as of this encounter Plan of Treatment Upcoming Encounters Date Type Department Care Team (Late st Contact Info) Description 04/20/2026 9:30 AM EST Office Visit [facility] [address] [facility] [address] [place] [address] Marek Cedeno MD [address] [facility] [address] [place] [address] documented as of this encounter Visit Diagnoses Not on filedocumented in this encounter Care Teams Drug Room Operator Relationship Specialty Start Date End Date Tony Chacon MD [address] [place] [id number] PCP - General Family Medicine 03/06/19 documented as of this encounter
--- OUTSIDE RECORDS SUMMARY | 2025-05-04 16:18 | XMS_ITS | Clinical Summary ---
[facility] Organization [facility] Address [address] [place] [address] Care Team Providers Care Fitting Room Checker Name Role Phone Tony Chacon MD Primary Care Provider Allergies No known active allergies Medications atorvastatin (LIPITOR) 40 MG tablet Take 1 tablet by mouth Daily. 0 9 Active nitroglycerin (NITROSTAT) 0.[address] under the tongue Every 5 (Five) Minutes As Needed for Chest Pain. 1 Active Eliquis 5 MG tablet tablet Take 1 tablet by mouth Every 12 (Twelve) Hours. Take 2.5 mg every 12 hours till evening. Resume 5 mg every 12 hours Sunday am ( 08/11) 60 tablet 3 Active acetaminophen (TYLENOL) 500 MG tabletIndication s:S/P total left hip arthroplasty Take 1 tablet by mouth Every 8 (Eight) Hours. 90 tablet 1 3 Active isosorbide mononitrate (IMDUR) 30 MG 24 hr tablet Take 1 tablet by mouth Daily. 30 tablet 5 3 Active naproxen (NAPROSYN) 500 MG tablet TAKE 1 TABLET BY MOUTH EVERY 12 HOURS WITH FOOD OR MILK FOR 15 DAYS NEEDED 3 Active Jardiance 10 MG tablet tablet Take 1 tablet by mouth Daily. 4 Active metoprolol succinate XL (TOPROL-XL) 50 MG 24 hr tablet Take 1 tablet by mouth Daily. 5 Active lisinopril (PRINIVIL,ZESTRI L) 5 MG tablet 5 Active amiodarone (PACERONE) 200 MG tablet Take 1 tablet by mouth Daily. 5 Active carvedilol (COREG) 25 MG tablet Take 1 tablet by mouth 2 (Two) Times a Day. 0 9 04/14/20 Discontinu ed(*Therap y completed) lisinopril (PRINIVIL,ZESTRI L) 10 MG tablet Take 1 tablet by mouth Daily. 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 10/10/2022 Status post total replacement of left hip 2022 Primary osteoarthritis of left hip 07/13/2022 Chronic anticoagulation 04/13/2022 S/P reverse total shoulder arthroplasty, right 1 06/12/2021 Hypertension 04/12/2022 Hyperlipidemia 04/12/2022 Coronary artery disease 04/12/2022 Atrial fibrillation 04/12/2022 Pacemaker 04/12/2022 Elevated hemoglobin A1c 04/12/2022 Arthritis of shoulder region, right 03/01/2022 Biceps tendinitis of right upper extremity 02/16 Primary localized osteoarthrosis of right should er region 12/08/2021 Primary localized osteoarthrosis of left shoulde r region 12/08/2021 Contracture of joint of right shoulder region Bilateral shoulder pain 12/08/2021 Encounters Date Type Department Care Team Description 04/14/2025 9:30 AM EST Office Visit [facility] [address] [place] [address] Marek Cedeno MD Status post reverse total replacement of right shoulder (Primary Dx) 04/14/2025 9:00 AM EST Ancillary Procedure [facility] [address] [place] [address] 04/14/2025 Travel from Last 3 Months Family History Medical History Relation Name Comments Cancer Father Relation Name Status Comments Father Social History Tobacco Use Types Packs/Day Years Used Date Smoking Tobacco: Never Smokeless Tobacco: Never Tobacco Cessation:Counseling Given: Not Answered Alcohol Use Standard Drinks/Week Comments No 0 [...] or training? Not on file Preferred Language Swedish 08/08/2022 Sex and Gender Information Value Date Recorded Sex Assigned at Not on file Legal Sex Male 11:56 AM EDT Gender Identity Not on file Sexual Orientation Not on file Last Filed Vital Signs Vital Sign Reading Time Taken Comments Blood Pressure 122/82 04/14/2025 8:47 AM EST Pulse 70 05/25/2023 1:45 PM EST Temperature 36.6 C (97.8 F) 06/06/2023 2:44 PM EST Respiratory Rate 16 05/25/2023 1:45 PM EST Oxygen Saturation 97% 05/25/2023 1:45 PM EST Inhaled Oxygen Concentration - - Weight 93.9 kg (207 lb 1.6 oz) 04/14/2025 8:47 A M EST Height 172.7 cm (5' 8 ) 04/14/2025 8:47 AM EST Body Mass Index 31.49 04/14/2025 8:47 AM EST Plan of Treatment Upcoming Encounters Date Type Department Care Team (Late st Contact Info) Description 04/20/2026 9:30 AM EST Office Visit [facility] [address] [facility] [address] [place] [address] Marek Cedeno MD [address] [facility] [address] [place] [address] Health Maintenance Due Date Last Done Comments LIPID PANEL 1943 TDAP/TD VACCINES (1 - Tdap) 1962 Pneumococcal Vaccine 50+ (1 of 1 - PCV) 1993 ZOSTER VACCINE (1 of 2) 1993 RSV Vaccine - Adults (1 - 1- dose 75+ series) 2018 ANNUAL WELLNESS VISIT 03/06/2019 COVID-19 Vaccine (2 - Pfizer risk series) 07/01/2020 06/10/2020 INFLUENZA VACCINE Completed 02/20/2025, , 02/21/2022, Additional history exists Medical Devices Implanted Type Area Resident Engineer Device Identifier Shelf Expiration Date Model / Serial / Lot Comp Hum/Shldr Nucleus Nostem Rev Cmtls Sz4 Betty - [id number] - [id number] Implanted:Qt y: 1 on 04/12/2022 by [facility]arek [facility] at [facility] Implant Right: Shoulder TORNIER [id number] 01/11/2026 [id number] / [id number] / Insrt Rev Shldr Perform Sz 3to4 42mm Pls0 - [id number] - [id number] Implanted:Qt y: 1 on 04/12/2022 by Marek Cedeno MD at [facility] Implant Right: Shoulder TORNIER [id number] 12/22/2025 [id number] / [id number] / Shldr Rev Ascend Flex W/Perform Lat/Aug Baseplt - [id number] Implanted:Qt y: 1 on 04/12/2022 by Marek Cedeno MD at [facility] Implant Right: Shoulder TORNIER CAPSHLDRREVASCE [id number] / / Post Shdlr Aequalis Perform Rev Prss/Fit Sht 7mm - [id number] - [id number] Implanted:Qt y: 1 on 04/12/2022 by Marek Cedeno MD at [facility] Implant Right: Shoulder TORNIER [id number] 12/28/2026 [id number] / [id number] / Baseplt Shldr Aequalis Ful/Wedge Dec 15deg 29mm - [id number] - [id number] Implanted:Qt y: 1 on 04/12/2022 by Marek Cedeno MD at [facility] Implant Right: Shoulder TORNIER [id number] 05/03/2022 [id number] / [id number] / Scrw Aequalis Perform Periph 5x26mm - [id number] Implanted:Qt y: 1 on 04/12/2022 by Marek Cedeno MD at [facility] Implant Right: Shoulder TORNIER [id number] / / Scrw Periph 5x34mm - [id number] Implanted:Qt y: 1 on 04/12/2022 by Marek Cedeno MD at [facility] Implant Right: Shoulder TORNIER [id number] / / Scrw Aequalis Perform Periph 5x38mm - [id number] Implanted:Qt y: 1 on 04/12/2022 by Marek Cedeno MD at [facility] Implant Right: Shoulder TORNIER [id number] / / Glenosphere Ecntrc Aequalis Perform Rev Inf Offst Pls4 42mm - [id number] - [id number] Implanted:Qt y: 1 on 04/12/2022 by Marek Cedeno MD at [facility] Implant Right: Shoulder TORNIER [id number] 06/22/2022 [id number] / [id number] / Wax Bone Hemo Aesculap 2.5gm - [id number] Implanted:Qt y: 1 on 08/07/2022 by Ace Olson MD at [facility] Implant Left: Hip AESCULAP A B [employer] 10/11/2026 [id number] / / [id number] Dev Contrl Tiss Stratafix Spiral Pdo Bidir 1 27j30hm - [id number] Implanted:Qt y: 1 on 08/07/2022 by Ace Olson MD at [facility] Implant Left: Hip [employer] OF J AND J 04/12/2027 [id number] / / [id number] Dev Contrl Tiss Stratafix Spiral Pdo Bidir Mo4 64x43wv - [id number] Implanted:Qt y: 1 on 08/07/2022 by Ace Olson MD at [facility] Implant Left: Hip [employer] OF AND J 11/10/2026 [id number] / / [id number] Shll Acet Trident2 Tritanium C/Hl 60mm - [id number] Implanted:Qt y: 1 on 08/07/2022 by Ace Olson MD at [facility] Implant Left: Hip RUSS [employer]IEGO 10/02/2025 [id number] / / [id number] Scrw Hex Lp Trident2 6.5x25mm - [id number] Implanted:Qt y: 1 on 08/07/2022 by Ace Olson MD at [facility] Implant Left: Hip R[employer]IEGO 04/18/2027 [id number] / / [id number] Scrw Hex Lp Trident2 6.5x30mm - [id number] Implanted:Qt y: 1 on 08/07/2022 by Ace Olson MD at [facility] Implant Left: Hip R[employer]IEGO 03/08/2026 [id number] / / [id number] Hip Restor Adm X3 04v83dp - [id number] Implanted:Qt y: 1 on 08/07/2022 by Ace Olson MD at [facility] Implant Left: Hip R[employer]IEGO 09/16/2025 [id number] / / [id number] Stem Fem Accolade2 V40 127d [id number] Sz5 - [id number] Implanted:Qt y: 1 on 08/07/2022 by Ace Olson MD at [facility] Implant Left: Hip R[employer] DIEGO 04/03/2027 [id number] / / [id number] Liner Mdm Cmtls Cocr Szg 48mm - [id number] Implanted:Qt y: 1 on 08/07/2022 by Ace Olson MD at [facility] Implant Left: Hip R[employer] DIEGO 01/26/2025 [id number] / / [id number] Hd Fem/Hip Biolox/Delta V40 Ceram 28mm - [id number] Implanted:Qt y: 1 on 08/07/2022 by Ace Olson MD at [facility] Implant Left: Hip RUSS DIEGO 09/18/2026 [id number] / / [id number] Cap Totl Hip Mobl Bear 5 Pc - [id number] Implanted:Qt y: 1 on 08/07/2022 by Ace Olson MD at [facility] Implant Left: Hip RUSS DIEGO CAPHIPMOBLEB EAR 5PIECE / / Pacemaker- Implanted: by Milton Bundy MD (Quantity not on file) Pacemaker [employer] Description:generator change , new card not yet available Explanted Type Area Resident Engineer Device Identifier Shelf Expiration Date Model / Serial / Lot Scrw Aequalis Perform Periph 5x30mm - [id number] Explanted:Qty: 1 on 04/12/2022 at [facility] Implant Right: Shoulder TORNIER [id number] / / Scrw Periph 5x34mm - [id number] Explanted:Qty: 1 on 04/12/2022 at [facility] Implant Right: Shoulder TORNIER [id number] / / Procedures Procedure Name Priority Date/Time Associated Diagnosis Comments XR SHOULDER 2+ VW RIGHT Routine 04/14/2025 9:00 AM EST Status post reverse total replacement of right shoulder from Last 3 Months Results * XR Shoulder 2+ View Right [...] IMG DIAGNOSTIC IMAGING OR DERABLES Final Result from Last 3 Months Insurance [employer] MEDICARE ADVANTAGE ANTHEM MEDICARE ADVANTAGE O Advance Directives * CPR (Attempt to Resuscitate) (Latest Code Status on File) Date Activated Date Inactivated Comments 08/07/2022 4:45 PM 08/08/2022 4:06 PM Question Answer Comments Code Status (Patient has no pulse and is not breathing): CPR (Attempt to Resuscitate) Medical Interventions (Patie nt has pulse or is breathing): Full Support Release to patient: Routine Release * CPR (Attempt to Resuscitate) Date Activated Date Inactivated Comments 04/12/2022 4:15 PM 04/13/2022 1:25 PM Question Answer Comments Code Status (Patient has no pulse and is not breathing): CPR (Attempt to Resuscitate) Medical Interventions (Patie nt has pulse or is breathing): Full Level Of Support Discussed With: Patient Care Teams Fitting Room Checker Relationship Specialty Start Date End Date Tony Chacon MD [address] [place] [id number] PCP - General Family Medicine 03/06/19
--- OUTSIDE RECORDS SUMMARY | 2025-05-04 16:18 | XMS_ITS | Referral Summary ---
Author Organization [employer] ([place], [place], [place], [place], [place]) Address [address] [place] [address] Care Team Providers Care Clerical Clerk Name Role Phone Tony Chacon MD Primary Care Provider [phone] Floridalma Grissom PA-C Unavailable [phone] Allergies No known active allergies Medications Jardiance 10 mg tablet TAKE 1 TABLET(10 MG) BY MOUTH DAILY 90 tablet 3 5 Active apixaban (Eliquis) 5 mg tab tabletIndication s:Atrial fibrillation, unspecified type (HCC) Take 1 tablet (5 mg total) by mouth 2 (two) times daily. 180 tablet 2 5 Active nitroglycerin (NITROSTAT) 0.[address] 1 tablet (0.4 mg total) under the tongue every 5 (five) minutes as needed for chest pain Put 1 pill under tongue every 5min as needed for chest pain.No more than 3 doses in 15min.Call 911 if pain unrelieved 5min after 1st dose. Active amiodarone (PACERONE) 400 MG tablet Take 1 tablet (400 mg total) by mouth 2 (two) times daily. 60 tablet 3 5 Active Active Problems Problem Noted Date Diagnosed Date CHF (congestive heart failur e), NYHA class I, acute on chronic, combined 01/15/2025 Shortness of breath 12/08/2024 Ischemic cardiomyopathy 03/14/2023 Encounter for preoperative a ssessment for noncoronary cardiac surgery 02/13/2023 Cubital tunnel syndrome on right 02/05/2023 Bilateral carpal tunnel syndrome 02/05/2023 Status post total replacement of left hip 2022 Hx of CABG 07/21/2022 Primary osteoarthritis of left hip 07/13/2022 Chronic anticoagulation 04/13/2022 Pacemaker 04/12/2022 Elevated hemoglobin A1c 04/12/2022 S/P reverse total shoulder arthroplasty, right 1 06/12/2021 Allergic rhinitis 03/17/2022 Arthritis 03/17/2022 Spinal cord injury 03/17/2022 Skin cancer 03/17/2022 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 WOODSON to LAD. SVG to Diag. SVG to OM1. SVG to PDA and PLB of the RCA. - Cr. Hipolito. Benign essential hypertension 06/21/2021 Nonsustained ventricular tachycardia 06/21/2021 Dyslipidemia 04/13/2020 Resolved Problems Problem Noted Date Diagnosed Date Resolved Date Atrial fibrillation 11/09/2020 06/30/19 23 Immunizations Immunization Administration Dates Next Due INFLUENZA QIV ADJUVANTED PF IM ([id number]) 03/02/20 21 INFLUENZA TRIVALENT ADJUVANTED PF IM 01/17/2017 Influenza High Dose Preservative Free IM ([id number] ) 02/21/2022,02/10/2020 Social History Tobacco Use Types Packs/Day Years Used Date Smoking Tobacco: Never Smokeless Tobacco: Never Tobacco Cessation:Counseling Given: Not Answered Alcohol Use Standard Drinks/Week Comments Not Currently 0 (1 standard drink = 0.6 oz pur e alcohol) Utilities Answer Date Recorded In the past 12 months, has t he electric, gas, oil, or water company threatened to shut off services in your home? No 01/15/2025 Interpersonal Safety Answer Date Record ed How often does anyone, inclu ding family and friends, physically hurt you? Never 01/15/2025 How often does anyone, shiloh montes family and friends, insult or talk down to you? Never 01/15/2025 How often does anyone, shiloh montes family and friends, threaten you with harm? Never 01/15/2025 How often does anyone, shiloh montes family and friends, scream or curse at you? Never 01/15/2025 Housing Stability Answer Date Recorded What is your living situation today? I have a [facility] place to live 01/15/[address] you li ve. Do you have problems with any of the following? None of the above 01/15/2025 Food Insecurity Answer Date Recorded Within the past 12 months, y ou worried that your food would run out before you got money to buy more. Never true 01/15/2025 Within the past 12 months, t he food you bought just didn't last and you didn't have money to get more. Never true 01/15/2025 Transportation Needs Answer Date Record ed In the past 12 months, has l ack of reliable transportation kept you from medical appointments, meetings, work or from getting things needed for daily living? No 01/15/2025 Financial Resource Strain Answer Date R ecorded How hard is it for you to pa y for the very basics like food, housing, medical care, and heating? Would you say it is: Not hard at all 01/15/2025 Employment Answer Date Recorded Do you want help finding or keeping work or a job? I do not need or want help 01/15/2025 Family and Community Support Answer Christian e Recorded If for any reason you need h elp with day-to-day activities such as bathing, preparing meals, shopping, managing finances, etc., do you get the help you need? I don't need any help 01/15/2025 Feeling Lonely or Isolated 0 01/15 Educational Attainment Answer Date Jorge rded Do you speak a language other than [facility]? No 01/15/2025 Do you want help with school or training? For example, starting or completing job training or getting a high school diploma, GED or equivalent. No 01/15/2025 Physical Activity Answer Date Recorded Number of minutes of exercise per week 0 01/15/2025 Self Management Answer Date Recorded Because of a physical, menta l, or emotional condition, do you have serious difficulty concentrating, remembering, or making decisions? (5 years or older) No 01/15/2025 Because of a physical, menta l, or emotional condition, do you have difficulty doing errands alone such as visiting a doctor's office or shopping? (15 years or older) No 01/15/2025 Substance Use Answer Date Recorded How many times in the past y ear have you used prescription drugs for non-medical reasons? Never 01/15/2025 How many times in the past year have you used il legal drugs? Never 01/15/2025 Mental Health Answer Date Recorded Calculation of above two rows 0 Sex and Gender Information Value Date Recorded Sex Assigned at Not on file Legal Sex Male 4:11 PM CDT Gender Identity Not on file Sexual Orientation Not on file Last Filed Vital Signs Vital Sign Reading Time Taken Comments Blood Pressure 111/78 01/17/2025 7:45 AM EDT Pulse 68 01/17/2025 7:45 AM EDT Temperature 36.7 C (98.1 F) 01/17/2025 7:45 AM EDT Respiratory Rate 16 01/17/2025 7:45 AM EDT Oxygen Saturation 95% 01/17/2025 7:45 AM EDT Inhaled Oxygen Concentration - - Weight 95.3 kg (210 lb) 01/15/2025 8:46 AM EDT Height 177.8 cm (5' 10 ) 01/15/2025 8:46 AM EDT Body Mass Index 30.13 01/15/2025 8:46 AM EDT Plan of Treatment Not on file Medical Devices Implanted Type Area Slps Device Identifier Shelf Expiration Date Model / Serial / Lot Pacemkr Visionist Is-1 Gravity Manager-P U225 PACEMAKER/ ICD CHAMBER DEVICE [employer]:CARDIAC RHYTHM MNGT [id number] 12/15/2023 U225 / [id number] / Pacemkr Visionist Is-1 Gravity Manager-P U225 - [id number] Implanted:Qty : 1 on 05/11/2022 at [facility] PACEMAKER/ ICD CHAMBER DEVICE Chest Wall [employer]:CARDIAC RHYTHM MNGT U225 / / Explanted Type Area Slps Device Identifier Shelf Expiration Date Model / Serial / Lot Pacemakers-01/12 Implanted:01/12 (Quantity not on file) Pacemakers AeroFS / [id number] / Insurance y 60 w [place] [address] [place] ACCESS HMO MAP Advance Directives For more information, please contact: [phone] * Full Code (Latest Code Status on File) Date Activated Date Inactivated Comments 01/15/2025 11:29 AM 01/17/2025 7:40 PM * Full Code Date Activated Date Inactivated Comments 01/15/2025 7:25 AM 01/15/2025 11:29 AM * Full Code Date Activated Date Inactivated Comments 05/11/2022 4:11 PM 05/12/2022 4:56 AM * Full Code Date Activated Date Inactivated Comments 05/11/2022 12:40 PM 05/11/2022 4:11 PM Care Teams Clerical Clerk Relationship Specialty Start Date End Date Tony Cahcon MD [address] [place] [phone] PCP - General Family Medicine 03/29/22 Floridalma Grissom, PALoboC [address] [facility] [place] [address] Cardiology 09/27/23
--- OUTSIDE RECORDS SUMMARY | 2025-05-04 16:18 | XMS_ITS | Clinical Summary ---
Author Organization [employer] ([place], [place], [place], [place], [place]) Address [address] [place] [address] Care Team Providers Care Plant Physiology Teacher Name Role Phone Tony Chacon MD Primary Care Provider [phone] Floridalma Grissom PA-C Unavailable [phone] Allergies No known active allergies Medications Jardiance [...] block 06/21/2021 Overview (06/30/2022): Pacemaker; dual chamber [employer] ASCVD (arteriosclerotic cardiovascular disease) 06/21/2021 Overview [...] Next Due INFLUENZA QIV ADJUVANTED PF IM ([id number]) 03/02/20 21 INFLUENZA TRIVALENT ADJUVANTED PF IM 01/17/2017 Influenza High Dose Preservative Free IM ([id number] ) 02/21/2022,02/10/2020 Social History Tobacco Use Types [...] Do you speak a language other than [place] at [facility]? No 01/15/2025 Do you want help with [...] 01/15/2025 8:46 AM EDT Plan of Treatment Health Maintenance Due Date Last Done Comments Depression Screening (12+) 1955 DTAP/TDAP/TD VACCINES (1 - Tdap) 1962 Pneumococcal 50+ years (1 of 2 - PCV) 1962 Shingles Vaccine (Zoster) (1 of 2) 1993 Respiratory Syncytial Virus (RSV) Adult or (1 - 1-dose 75+ series) 2018 Falls Risk Screening 05/14/2024 Medicare Initial AWV G0438 05/14/2024 COVID-19 VACCINE (2 - 2024-2 6 season) 2025 06/10/2020 Influenza Vaccine (#1) 2025 , 02/21/2022, 03/02/2021, Additional history exists Tobacco Cessation Counseling and Screening (12+) 01/15/2026 01/15/2025 Medical Devices Implanted Type Area Templer Head Device Identifier Shelf Expiration Date Model / Serial / Lot Pacemkr Visionist Is-1 Slat Basket Maker Machine-P U225 PACEMAKER/ ICD CHAMBER DEVICE [employer]:CARDIAC RHYTHM MNGT [id number] 12/15/2023 U225 / [id number] / Pacemkr Visionist Is-1 Slat Basket Maker Machine-P U225 - [id number] Implanted:Qty : 1 on 05/11/2022 at [facility] PACEMAKER/ ICD CHAMBER DEVICE Chest Wall [employer]:CARDIAC RHYTHM MNGT U225 / / Explanted Type Area Templer Head Device Identifier Shelf Expiration Date Model / Serial / Lot Pacemakers-01/12 Implanted:01/12 (Quantity not on file) Pacemakers [employer] / [id number] / Insurance [place] [address] [place] [address] [facility] ACCESS O MAP Advance Directives For more information, please contact: [phone] * Full Code (Latest Code Status on File) Date Activated Date Inactivated Comments 01/15/2025 11:29 AM 01/17/2025 7:40 PM * Full Code Date Activated Date Inactivated Comments 01/15/2025 7:25 AM 01/15/2025 11:29 AM * Full Code Date Activated Date Inactivated Comments 05/11/2022 4:11 PM 05/12/2022 4:56 AM * Full Code Date Activated Date Inactivated Comments 05/11/2022 12:40 PM 05/11/2022 4:11 PM Care Teams Plant Physiology Teacher Relationship Specialty Start Date End Date Tony Chacon MD [address] [place] [phone] PCP - General Family Medicine 03/29/22 Floridalma Grissom, PA-C [address] [place] [address] [place] [address] Cardiology 09/27/23
--- OUTSIDE RECORDS SUMMARY | 2025-05-04 16:18 | XMS_ITS ---
Author Organization [employer] ([place], [place], [place], [place], [place]) Address [address] [place] [address] Care Team Providers Care Janitor Name Role Phone Tony Chacon MD Primary Care Provider [phone] Floridalma Grissom PA-C Unavailable [phone] Active Problems Problem Noted Date Diagnosed Date [...] block 06/21/2021 Overview (06/30/2022): Pacemaker; dual chamber [employer] ASCVD (arteriosclerotic cardiovascular disease) 06/21/2021 Overview (06/30/2022): 2013 - CABG x5. WOODSON to LAD. SVG to Diag. SVG to OM1. SVG to PDA and PLB of the RCA. - Cr. Mcmillan. Benign essential hypertension 06/21/2021 Nonsustained ventricular tachycardia 06/21/2021 Dyslipidemia 04/13/2020 Current Treatment and Therapy Plans No current plan information found. Past Treatment and Therapy Plans No past plan information found. Lifetime Dose Tracking * Chemical Lifetime Dose Automatic Entry Manual Entr y Radiation 3,669 mGy 3,669 mGy 0 mGy Resolved Problems Problem Noted Date Diagnosed Date Resolved Date Atrial fibrillation 11/09/2020 06/30/19 23
[2025-05-04] MEDS: TET/DIPHTH/PERT-ADULT 0.5ML SYRINGE 0.5 ML IM (16:24)
[2025-05-04] MEDS: ACETAMINOPHEN 500MG TAB 1000 MG PO (16:24)
--- NOTE | 2025-05-04 16:54 | PC.NURSE ---
Pt to ct by wheelchair
--- NOTE | 2025-05-04 17:35 | PC.NURSE ---
calling [facility] per Dr Kemp for a consult with neuro surgery for a small subarachnoid hemorrhage vs artifact.
--- NOTE | 2025-05-04 17:40 | PC.NURSE ---
[facility] will call back
[2025-05-04 17:57] LABS: Hematocrit 44.5 % (42.0-52.0); Hemoglobin 14.6 g/dL (14.1-18.0); Immature Granulocytes % 0.5 %; Mean Corpuscular HGB Conc 32.8 g/dL (31.8-35.4); Mean Corpuscular Hemoglobin 32.7 pg (27.0-31.2); Mean Corpuscular Volume 99.8 fl (80-94); Nucleated Red Blood Cells % 0 %; Platelet Count 146 K/mm3 (142-424); Red Blood Count 4.46 M/mm3 (4.60-6.20); Red Cell Distribution Width-SD 51.8 fL; White Blood Count 7.9 K/mm3 (4.8-10.8)
[2025-05-04 18:09] LABS: Activated Partial Thrombo Time 29.1 seconds (22.8-30.6); INR 0.98 (0.9-1.1); Prothrombin Time 10.9 seconds (10.1-12.5)
[2025-05-04 18:32] LABS: RBC Morphology Normal; Total Cells Counted 100
[2025-05-04 18:34] LABS: Alanine Aminotransferase 25 U/L (12-78); Albumin Level 4.5 g/dl (3.5-5.0); Albumin/Globulin Ratio 1.5 (1.1-1.8); Alkaline Phosphatase 95 U/L (38-126); Anion Gap 8.1 mEq/L (5-15); Aspartate Amino Transferase 36 U/L (17-59); Bilirubin,Total 0.8 mg/dl (0.2-1.3); Blood Urea Nitrogen 26 mg/dl (9-20); Calcium 9.0 mg/dl (8.4-10.2); Carbon Dioxide 30 mmol/L (22.0-30.0); Chloride 104 mmol/L (98-107); Creatinine Clearance Estimated 56 mL/min (50-200); Creatinine,Serum 1.30 mg/dl (0.66-1.25); Estimated Glomerular Filt Rate 53 ml/min (>60); GFR (African American) 64 ML/MIN (>60); Globulin 3.1 g/dL (1.3-3.2); Glucose 117 mg/dl (74-100); Potassium 5.1 mmoL/L (3.5-5.1); Sodium 137 mmol/L (136-145); Total Protein,Serum 7.6 g/dl (6.3-8.2)
--- NOTE | 2025-05-04 18:42 | PC.NURSE ---
Provider notified of change in patient's BP 192/96, 179/105. This RN went to bedside to assess patient. Pt denies any pain at this time. Pt noted to be tearful
[2025-05-04] MEDS: LABETALOL 20MG/4ML SYRINGE 10 MG IV (19:04)
== END 2025-05-04 19:06 | disposition other institution (70) ==
PROVIDERS: Emergency Provider Student in an Organized Health Care Education/Training Program
DX: S06.6X9A Traumatic subarachnoid hemorrhage with loss of consciousness of unspecified duration, initial encounter (principal); S01.01XA Laceration without foreign body of scalp, initial encounter; I48.0 Paroxysmal atrial fibrillation; Z79.01 Long term (current) use of anticoagulants; W18.39XA Other fall on same level, initial encounter
CPT/HCPCS: 12002; 70450; 72125; 80053; 85007; 85025; 85610; 85730; 90471; 90715; 93005; 96374; 99285; J1920